=== PATIENT | female | born 1935 | race Caucasian/White ===

== ENCOUNTER 2016-08-20 11:34 | Emergency (ER) | payer MEDICARE, OTHER ==
--- NOTE | 2016-08-20 11:45 | ER Document Report ---
ED Medical Screen (RME) - General Stated Complaint: RIGHT LEG PAIN, BRUISING Notes: 80 yo female c/o bruising and pain to right leg. pt fell onto toilet. on coumadin. + bruising from hip to calf. able to walk without difficulty. feels pain from bruising. no chest pain or shortness of breath. hx/o A-fib. TRAVEL OUTSIDE OF THE [place] IN LAST 30 DAYS: No - Related Data Allergies/Adverse Reactions: fexofenadine HCl [From Saray] Allergy (Verified 02/01/13 14:20) rash meperidine HCl [From Demerol] Allergy (Verified 02/01/13 14:20) heart problems nickel [Nickel] Allergy (Verified 02/01/13 14:20) RASH Past Medical History - Past Medical History Cardiac Medical History: Reports: Hx Atrial Fibrillation, Hx Hypertension - on meds Denies: Hx Coronary Artery Disease, Hx Heart Attack Pulmonary Medical History: Reports: Hx Asthma - inhalers, Hx COPD - on O2 2l nc , Hx Pneumonia - hx of Denies: Hx Bronchitis, Hx Tuberculosis Neurological Medical History: Denies: Hx Cerebrovascular Accident, Hx Seizures Endocrine Medical History: Reports: Hx Hyperthyroidism, Hx Hypothyroidism GI Medical History: Denies: Hx Hepatitis, Hx Hiatal Hernia, Hx Ulcer Musculoskeltal Medical History: Reports Hx Arthritis Infectious Medical History: Denies: Hx Hepatitis Past Surgical History: Reports: Hx Appendectomy, Hx Orthopedic Surgery, Hx Tonsillectomy. Denies: Hx Mastectomy, Hx Open Heart Surgery, Hx Pacemaker - Immunizations Hx Diphtheria, Pertussis, Tetanus Vaccination: Yes
--- NOTE | 2016-08-20 12:09 | ER Document Report ---
ED General - General Chief Complaint: Fall Stated Complaint: RIGHT LEG PAIN, BRUISING Time seen by provider: 12:05 Mode of Arrival: Ambulatory Information source: Patient Notes: 80-year-old female who slipped while sitting down on toilet 5 days ago landing hard on her right leg. She had no loss of consciousness or fall. The patient is on Coumadin for atrial fibrillation routinely takes 5 mg a day and 2 weeks ago began taking and next to 1 mg on Thursday because of the therapeutic levels. She is followed by [facility]. 3 days ago the patient began noticing bruising diffusely to her right lower extremity. She does ambulate without difficulty but she reports mild discomfort in the distal right lower leg she is bearing weight without increase in discomfort. She denies numbness weakness to any extremity says she did not fall or strike her head with this incident. She denies hematemesis, hematochezia, melena, hematuria, chest pain, abdominal pain, back pain, or shortness of breath. Physical Exam: General: Alert, appears well. HEENT: Normocephalic. Atraumatic. PERRLA. Extraocular movements intact. Oropharynx clear. No otorhinorrhea Neck: Supple. Non-tender. Good range of motion without discomfort no bony deformity Respiratory: No respiratory distress. Clear and equal breath sounds bilaterally. Cardiovascular: Slightly irregular no murmur PMI not displaced Abdominal: Normal Inspection. Soft, non-tender. No distension. Normal Bowel Sounds. No guarding rebound rigidity Back: Non-tender. No deformity or step off. Extremities: Moves all four extremities. Upper extremities: Normal inspection. Non-tender. Normal color. Normal ROM. Normal temperature. Left foot there is minimal abnormality of the dorsum or family reports she had a skin graft. She has 1+ dorsalis pedis and posterior tibial pulses to both feet. There is extensive ecchymosis involving the posterior right thigh and circumferentially to the right lower leg and the need to the foot. She has 1+ edema involving the calf but no true Homans sign. She is able to demonstrate full active range of motion at the hip knee and ankle without increase in discomfort. Neurological: Speech clear mentation normal moves all 4 extremities equally Psychological: Normal affect. Normal Mood. Skin: Warm. Dry. Normal color. TRAVEL OUTSIDE OF THE [place] IN LAST 30 DAYS: No - Related Data Allergies/Adverse Reactions: fexofenadine HCl [From Saray] Allergy (Verified 08/20/16 11:41) rash meperidine HCl [From Demerol] Allergy (Verified 08/20/16 11:41) heart problems nickel [Nickel] Allergy (Verified 08/20/16 11:41) RASH Past Medical History - Social History Smoking Status: Former Smoker Chew tobacco use (# tins/day): No Frequency of alcohol use: None Drug Abuse: None Family History: Other - Brother with atrial fibrillation Patient has suicidal ideation: No Patient has homicidal ideation: No - Past Medical History Cardiac Medical History: Reports: Hx Atrial Fibrillation, Hx Hypertension - on meds Denies: Hx Coronary Artery Disease, Hx Heart Attack Pulmonary Medical History: Reports: Hx Asthma - inhalers, Hx COPD - on O2 2l nc , Hx Pneumonia - hx of Denies: Hx Bronchitis, Hx Tuberculosis Neurological Medical History: Denies: Hx Cerebrovascular Accident, Hx Seizures Endocrine Medical History: Reports: Hx Hyperthyroidism, Hx Hypothyroidism Renal/ Medical History: Denies: Hx Peritoneal Dialysis GI Medical History: Denies: Hx Hepatitis, Hx Hiatal Hernia, Hx Ulcer Musculoskeltal Medical History: Reports Hx Arthritis Infectious Medical History: Denies: Hx Hepatitis Past Surgical History: Reports: Hx Appendectomy, Hx Orthopedic Surgery, Hx Tonsillectomy. Denies: Hx Mastectomy, Hx Open Heart Surgery, Hx Pacemaker - Immunizations Hx Diphtheria, Pertussis, Tetanus Vaccination: Yes Hx Pneumococcal Vaccination: 07/03/08 Review of Systems - Review of Systems Constitutional: denies: Chills, Fever EENT: denies: Ear pain, Throat pain Cardiovascular: denies: Chest pain, Syncope Respiratory: denies: Cough, Short of breath Gastrointestinal: denies: Abdominal pain, Diarrhea, Nausea, Vomiting Genitourinary: denies: Burning, Dysuria Musculoskeletal: See HPI Skin: See HPI Neurological/Psychological: denies: Weakness, Numbness Physical Exam - Vital signs Vitals: Temp Pulse Resp BP 97.6 F 66 24 H 132/77 H 08/20/16 11:49 08/20/16 11:49 08/20/16 11:49 08/20/16 11:49 Course - Re-evaluation Re-evalutation: 08/20/16 14:20 Venous Doppler study shows no clot and she is appropriately anticoagulated. Hemoglobin is normal also doesn't appear that she has lost a significant amount of blood in spite of the market amount of bruising that she has. She is comfortable with discharge and have asked her follow with her primary care physician Dr. Jeff Ahumada [facility] Which She Has Agreed to Do. I Instructed Her to Continue Her Coumadin at Current Dosing until She Is Rechecked in the next few days. - Vital Signs Vital signs: Temp Pulse Resp BP Pulse Ox 97.6 F 66 24 H 132/77 H 95 08/20/16 11:49 08/20/16 11:49 08/20/16 11:49 08/20/16 11:49 08/20/16 11:52 - Laboratory Result Diagrams: 08/20/16 12:35 08/20/16 12:35 Laboratory results interpreted by me: 08/20/16 08/20/16 08/20/16 12:35 12:35 12:35 WBC 10.8 H MCHC 31.9 L RDW 15.7 H Plt Count 545 H Seg Neutrophils % 81.2 H Lymphocytes % 7.7 L Absolute Neutrophils 8.8 H PT 27.5 H Potassium 5.3 H Carbon Dioxide 34 H BUN 28 H Est GFR (Non-Af Amer) 54 L Total Bilirubin 1.4 H AST 49 H INR 2.44 - Diagnostic Test Radiology reviewed: Reports reviewed Discharge - Discharge Clinical Impression: Coagulopathy Contusion of right leg Qualifiers: Encounter type: initial encounter Qualified Code(s): S80.11XA - Contusion of right lower leg, initial encounter Atrial fibrillation Qualifiers: Atrial fibrillation type: unspecified Qualified Code(s): I48.91 - Unspecified atrial fibrillation Condition: Stable Disposition: HOME, SELF-CARE Additional Instructions: Coumadin (warfarin) Coumadin slows the clotting of the blood. It's sometimes called a "blood thinner." Coumadin makes it less likely that you'll have a blood clot, heart attack, or stroke. Coumadin works in the liver, which makes blood clotting enzymes. You must have a lab test (PT or pro-time) periodically to measure the effectiveness of Coumadin. Too much Coumadin makes you prone to bleeding; too little makes you prone to blood clots. Never change the dose of Coumadin without your doctor's advice. New medicines can change the effects of Coumadin. Never add a new drug without discussing it with the doctor who oversees your "blood thinning." If the drug can affect Coumadin, you'll need more frequent PT tests for a while. Vitamin K reverses the effects of Coumadin. Don't take extra vitamin K without discussing it with your doctor. You can take Tylenol (acetaminophen) for occasional pains. DO NOT use aspirin, ibuprofen (such as Advil), ketoprofen (Orudis), or naproxen (Aleve) unless your doctor approves it. You should NOT use Coumadin if you are or have active (new) or bleeding ulcers. Contact your doctor at once if you develop black tarry stool, rash, purple toes, worsening headache, loss of vision, numbness or weakness. Get immediate medical care if you are vomiting blood or passing bloody bowel movements, are lightheaded, or have a severe nosebleed.Atrial Fibrillation Atrial fibrillation is an abnormal heart rhythm, caused by irregular electrical circuits in the upper heart chamber. It can be caused by heart valve disease, hardening of the arteries, or metabolic problems such as thyroid disease, or may occur without a clear cause. Atrial fibrillation may occur only occasionally, or may be chronic. Atrial fibrillation often results in a very fast heart rate, with palpitations, lightheadedness, and shortness of breath. Treatment is to slow the abnormally fast rate, and to convert the rhythm back to normal, if possible. Many patients stay in atrial fibrillation for years without symptoms or complications. Your doctor will decide whether you can be converted back to a normal heart rhythm. Contact the doctor or emergency medical system at once if you develop chest pain, shortness of breath, or severe lightheadedness, or if you develop any disturbance of consciousness, problems with speech, or localized weakness. Referrals: JEFF TRUJILLO [Primary Care Provider] - Follow up in 3-5 days
[2016-08-20 12:49] LABS: ABSOLUTE BASOPHILS # (AUTO) 0.1 10^3/uL (0.0-0.2); ABSOLUTE EOSINOPHILS # (AUTO) 0.2 10^3/uL (0.0-0.6); ABSOLUTE LYMPHOCYTES (AUTO) 0.8 10^3/uL (0.5-4.7); ABSOLUTE MONOCYTES (AUTO) 0.9 10^3/uL (0.1-1.4); ABSOLUTE NEUT (AUTO) 8.8 10^3/uL (1.7-8.2); BASOPHILS % (AUTO) 1.1 % (0-2); EOSINOPHILS % (AUTO) 1.6 % (0-6); HEMOGLOBIN 12.4 g/dL (12.0-15.5); HGB HCT DIFFERENCE -1.8; LYMPHOCYTES % (AUTO) 7.7 % (13-45); MEAN CORPUSCULAR HEMOGLOBIN 30.8 pg (27.0-33.4); MEAN CORPUSCULAR HGB CONC 31.9 g/dL (32.0-36.0); MEAN CORPUSCULAR VOLUME 97 fl (80-97); MONOCYTES % (AUTO) 8.4 % (3-13); RED BLOOD COUNT 4.04 10^6/uL (3.72-5.28); RED CELL DISTRIBUTION WIDTH 15.7 % (11.5-14.0); SEGMENTED NEUTROPHILS % (AUTO) 81.2 % (42-78); WHITE BLOOD COUNT 10.8 10^3/uL (4.0-10.5)
[2016-08-20 12:57] LABS: PROTHROMBIN TIME 27.5 SEC (11.4-15.4)
[2016-08-20 13:08] LABS: ALANINE AMINOTRANSFERASE 30 U/L (9-52); ALBUMIN 3.8 g/dL (3.5-5.0); ALKALINE PHOSPHATASE 85 U/L (38-126); ANION GAP 6 (5-19); ASPARTATE AMINO TRANSFERASE 49 U/L (14-36); BILIRUBIN,TOTAL 1.4 mg/dL (0.2-1.3); BLOOD UREA NITROGEN 28 mg/dL (7-20); CALCIUM 9.4 mg/dL (8.4-10.2); CARBON DIOXIDE 34 mmol/L (22-30); CHLORIDE 101 mmol/L (98-107); CREATININE RESULT 0.98 mg/dL (0.52-1.25); GLUCOSE 81 mg/dL (75-110); POTASSIUM 5.3 mmol/L (3.6-5.0); SODIUM 141.2 mmol/L (137-145); TOTAL PROTEIN 6.9 g/dL (6.3-8.2)
[2016-08-20 14:39] VITALS: BP 149/82
[2016-08-20 14:40] LABS: APPEARANCE,URINE CLEAR; BILIRUBIN,URINE NEGATIVE (NEGATIVE); GLUCOSE, URINE NEGATIVE (NEGATIVE); KETONES,URINE NEGATIVE (NEGATIVE); LEUKOCYTE ESTERASE,URINE MODERATE (NEGATIVE); NITRITE,URINE NEGATIVE (NEGATIVE); PROTEIN,URINE NEGATIVE (NEGATIVE); URINE SPECIFIC GRAVITY 1.013
== END 2016-08-20 14:39 | disposition home or self-care (01) ==
LOC: ER 11:34
DX: S80.11XA Contusion of right lower leg, initial encounter (principal); W18.11XA Fall from or off toilet without subsequent striking against object, initial encounter; D68.9 Coagulation defect, unspecified; R58 Hemorrhage, not elsewhere classified; I48.91 Unspecified atrial fibrillation; Z79.01 Long term (current) use of anticoagulants; I10 Essential (primary) hypertension; J44.9 Chronic obstructive pulmonary disease, unspecified; J45.909 Unspecified asthma, uncomplicated; Z99.81 Dependence on supplemental oxygen; Z88.8 Allergy status to other drugs, medicaments and biological substances; Z88.5 Allergy status to narcotic agent; Z87.891 Personal history of nicotine dependence
CPT/HCPCS: 36415; 80053; 81001; 85025; 85610; 93971; 99283

== ENCOUNTER → 2016-11-21 | Outpatient (CLI) | payer MEDICARE, OTHER | LOC: RAD 11:20 | PROVIDERS: ATTEND Internal Medicine | DX: H53.2 Diplopia (principal) | CPT/HCPCS: 82565; 70553; A9577 ==

== ENCOUNTER → 2016-12-09 | Outpatient (CLI) | payer MEDICARE, OTHER | LOC: RAD 09:50 | PROVIDERS: ATTEND Internal Medicine | DX: H53.2 Diplopia (principal) | CPT/HCPCS: 70544 ==

== ENCOUNTER 2017-07-08 13:19 | Inpatient (IN) | payer MEDICARE, OTHER ==
[2017-07-08] MEDS ORDERED: IPRATROPIUM/ALBUTEROL 0.5-2.5 MG/3 ML AMPUL NEB ONE ×3 (13:50→16:21)
--- NOTE | 2017-07-08 13:53 | ER Document Report ---
ED Medical Screen (RME) - General Chief Complaint: Shortness Of Breath Stated Complaint: WEAK,CONGESTION Time Seen by Provider: 07/08/17 13:47 Notes: O2 dependent COPD on 4 L nasal cannula at home. Yesterday breathing got worse, she was found to have her concentrator to almost off and the were unable to locate her pulse oximeter. Today her breathing was worse and the pulse ox was reading in the 80s despite being on her 4 L O2. She does not use a nebulizer at home, has Spiriva Brio and rescue inhaler which she uses today. She does have a congested cough with rhonchi wheezes at this time. She is a little tachypneic. I have greeted and performed a rapid initial assessment of this patient. A comprehensive ED assessment and evaluation of the patient, analysis of test results and completion of the medical decision making process will be conducted by additional ED providers. TRAVEL OUTSIDE OF THE [place] IN LAST 30 DAYS: No - Related Data Allergies/Adverse Reactions: fexofenadine HCl [From Saray] Allergy (Verified 08/20/16 11:41) rash meperidine HCl [From Demerol] Allergy (Verified 08/20/16 11:41) heart problems nickel [Nickel] Allergy (Verified 08/20/16 11:41) RASH Past Medical History - Social History Chew tobacco use (# tins/day): No Frequency of alcohol use: None Drug Abuse: None - Past Medical History Cardiac Medical History: Reports: Hx Atrial Fibrillation, Hx Hypertension - on meds Denies: Hx Coronary Artery Disease, Hx Heart Attack Pulmonary Medical History: Reports: Hx Asthma - inhalers, Hx COPD - on O2 2l nc , Hx Pneumonia - hx of Denies: Hx Bronchitis, Hx Tuberculosis Neurological Medical History: Denies: Hx Cerebrovascular Accident, Hx Seizures Endocrine Medical History: Reports: Hx Hyperthyroidism, Hx Hypothyroidism Renal/ Medical History: Denies: Hx Peritoneal Dialysis GI Medical History: Denies: Hx Hepatitis, Hx Hiatal Hernia, Hx Ulcer Musculoskeltal Medical History: Reports Hx Arthritis Infectious Medical History: Denies: Hx Hepatitis Past Surgical History: Reports: Hx Appendectomy, Hx Orthopedic Surgery, Hx Tonsillectomy. Denies: Hx Mastectomy, Hx Open Heart Surgery, Hx Pacemaker - Immunizations Hx Diphtheria, Pertussis, Tetanus Vaccination: Yes Physical Exam - Vital signs Vitals: Temp Pulse Resp BP Pulse Ox 98.4 F 64 26 H 165/86 H 79 L 07/08/17 13:35 07/08/17 13:35 07/08/17 13:35 07/08/17 13:35 07/08/17 13:35 Course - Vital Signs Vital signs: Temp Pulse Resp BP Pulse Ox 98.4 F 64 26 H 165/86 H 79 L 07/08/17 13:35 07/08/17 13:35 07/08/17 13:35 07/08/17 13:35 07/08/17 13:35
[2017-07-08 14:36] LABS: HEMATOCRIT 42.8 % (36.0-47.0); HEMOGLOBIN 14.9 g/dL (12.0-15.5); HGB HCT DIFFERENCE 1.9; MEAN CORPUSCULAR HEMOGLOBIN 32.4 pg (27.0-33.4); MEAN CORPUSCULAR HGB CONC 34.8 g/dL (32.0-36.0); MEAN CORPUSCULAR VOLUME 93 fl (80-97); RED CELL DISTRIBUTION WIDTH 15.3 % (11.5-14.0); WHITE BLOOD COUNT 21.9 10^3/uL (4.0-10.5)
[2017-07-08] MEDS ORDERED: PREDNISONE 20 MG TABLET PO ONE (14:39)
--- NOTE | 2017-07-08 14:42 | ER Document Report ---
ED Respiratory Problem - General Chief Complaint: Shortness Of Breath Stated Complaint: WEAK,CONGESTION Time Seen by Provider: 07/08/17 13:47 Notes: The patient is an 81-year-old female, past medical history COPD (on home 4 L oxygen), AAntonia lau, presents with increased coughing and shortness of breath for the past 2 days. She was on her home 4 L oxygen and her pulse ox was 79%. She did not have any more albuterol at home that she could use. Pt lives by herself. She denies fevers, chest pain, leg swelling, hemoptysis, sputum, back pain, abdominal pain, nausea, vomiting or headache. TRAVEL OUTSIDE OF THE [place] IN LAST 30 DAYS: No - Related Data Allergies/Adverse Reactions: fexofenadine HCl [From Saray] Allergy (Verified 08/20/16 11:41) rash meperidine HCl [From Demerol] Allergy (Verified 08/20/16 11:41) heart problems nickel [Nickel] Allergy (Verified 08/20/16 11:41) RASH Past Medical History - General Information source: Patient - Social History Smoking Status: Former Smoker Chew tobacco use (# tins/day): No Frequency of alcohol use: None Drug Abuse: None Family History: Other - Brother with atrial fibrillation Patient has suicidal ideation: No Patient has homicidal ideation: No - Past Medical History Cardiac Medical History: Reports: Hx Atrial Fibrillation, Hx Hypertension - on meds Denies: Hx Coronary Artery Disease, Hx Heart Attack Pulmonary Medical History: Reports: Hx Asthma - inhalers, Hx COPD - on O2 2l nc , Hx Pneumonia - hx of Denies: Hx Bronchitis, Hx Tuberculosis Neurological Medical History: Denies: Hx Cerebrovascular Accident, Hx Seizures Endocrine Medical History: Reports: Hx Hyperthyroidism, Hx Hypothyroidism Renal/ Medical History: Denies: Hx Peritoneal Dialysis GI Medical History: Denies: Hx Hepatitis, Hx Hiatal Hernia, Hx Ulcer Musculoskeltal Medical History: Reports Hx Arthritis Infectious Medical History: Denies: Hx Hepatitis Past Surgical History: Reports: Hx Appendectomy, Hx Orthopedic Surgery, Hx Tonsillectomy. Denies: Hx Mastectomy, Hx Open Heart Surgery, Hx Pacemaker - Immunizations Hx Diphtheria, Pertussis, Tetanus Vaccination: Yes Hx Pneumococcal Vaccination: 07/03/08 Review of Systems - Review of Systems Notes: REVIEW OF SYSTEMS: CONSTITUTIONAL: -fevers, -chills EENT: -eye pain, -difficulty swallowing, -nasal congestion CARDIOVASCULAR:-chest pain, -syncope. RESPIRATORY: +cough, +SOB GASTROINTESTINAL: -abdominal pain, -nausea, -vomiting, -diarrhea GENITOURINARY: -dysuria, -hematuria MUSCULOSKELETAL: -back pain, -neck pain SKIN: -rash or skin lesions. HEMATOLOGIC: -easy bruising or bleeding. LYMPHATIC: -swollen, enlarged glands. NEUROLOGICAL: -altered mental status or loss of consciousness, -headache, - neurologic symptoms PSYCHIATRIC: -anxiety, -depression. ALL OTHER SYSTEMS REVIEWED AND NEGATIVE. Physical Exam - Vital signs Vitals: Temp Pulse Resp BP Pulse Ox 98.4 F 64 26 H 165/86 H 79 L 07/08/17 13:35 07/08/17 13:35 07/08/17 13:35 07/08/17 13:35 07/08/17 13:35 - Notes Notes: PHYSICAL EXAMINATION: GENERAL: Mild respiratory distress. HEAD: Atraumatic, normocephalic. EYES: Pupils equal round and reactive to light, extraocular movements intact, sclera anicteric, conjunctiva are normal. ENT: nares patent, oropharynx clear without exudates. Moist mucous membranes. NECK: Normal range of motion, supple without lymphadenopathy LUNGS: Diffuse wheezing. Speaking in 4 word sentences. Crackles in RUL. HEART: Regular rate. Irregular rhythm. ABDOMEN: Soft, nontender, normoactive bowel sounds. No guarding, no rebound. No masses appreciated. EXTREMITIES: Normal range of motion, no pitting or edema. No cyanosis. NEUROLOGICAL: Cranial nerves grossly intact. Normal speech, normal gait. Normal sensory and motor exams. PSYCH: Normal mood, normal affect. SKIN: Warm, Dry, normal turgor, no rashes or lesions noted. Course - Re-evaluation Re-evalutation: Patient presents tachypneic with diffuse wheezing and hypoxia down to 79% on her usual 4 L nasal cannula. After duonebs and steroids, her wheezing improved , but she still felt short of breath. Patient was ambulated on her home 4 L nasal cannula and she went back down into the 70s. Chest x-ray does not show any acute findings, but patient does have a new cough, crackles in RUL with a leukocytosis of 21, higher than prior values. Will begin Azithromycin and Rocephin for a presumed early-pneumonia with lagging on chest x-ray. Considered PE, but patient's symptoms are more consistent with bronchitis/pneumonia/COPD exacerbation causing the SOB and hypoxia. Pt's PMD is Jeff Mendez at [facility] and she has seen Dr. Chaudhry (Pulmonology). Pt requires Inpatient admission for further evaluation and treatment of her COPD exacerbation and presumed clinical early-pneumonia. 07/08/17 17:[address] De Jesus and will admit patient to IMCU. - Vital Signs Vital signs: Temp Pulse Resp BP Pulse Ox 98.4 F 64 28 H 165/86 H 88 L 07/08/17 13:35 07/08/17 13:35 07/08/17 16:00 07/08/17 13:35 07/08/17 16:00 - Laboratory Result Diagrams: 07/08/17 14:12 07/08/17 16:25 Laboratory results interpreted by me: 07/08/17 07/08/17 14:12 16:25 WBC 21.9 H RDW 15.3 H Plt Count 492 H Seg Neuts % (Manual) 93 H Lymphocytes % (Manual) 2 L Abs Neuts (Manual) 20.4 H Sodium 133.7 L Chloride 92 L Glucose 117 H Calcium 10.3 H Direct Bilirubin 0.6 H - Diagnostic Test Radiology reviewed: Image reviewed, Reports reviewed Radiology results interpreted by me: CXR: Chronic lung changes. Discharge - Discharge Clinical Impression: Hypoxia, COPD exacerbation, Clinical Pneumonia Leukocytosis Qualifiers: Leukocytosis type: unspecified Qualified Code(s): D72.829 - Elevated white blood cell count, unspecified Condition: Stable Disposition: ADMITTED INPATIENT Admitting Provider: [facility] Unit Admitted: [facility] Referrals: JEFF MENDEZ FNP [Primary Care Provider] - Follow up as needed
[2017-07-08 14:56] LABS: BASOPHILS % (MANUAL) 0 % (0-2); EOSINOPHILS % (MANUAL) 0 % (0-6); LYMPHOCYTES % (MANUAL) 2 % (13-45); TOTAL CELLS COUNTED 100
[2017-07-08 14:57] LABS: ANISOCYTOSIS SLIGHT
--- NOTE | 2017-07-08 15:11 | RADIOLOGY REPORT (SQ) ---
EXAM DESCRIPTION: CHEST SINGLE VIEW COMPLETED DATE/TIME: 07/08/2017 2:59 pm REASON FOR STUDY: COPD exacerbation COMPARISON: 04/28/2015 EXAM PARAMETERS: NUMBER OF VIEWS: One view. TECHNIQUE: Single frontal radiographic view of the chest acquired. RADIATION DOSE: NA LIMITATIONS: None. FINDINGS: LUNGS AND PLEURA: Chronic interstitial changes are present. There is no infiltrate or eff usion. MEDIASTINUM AND HILAR STRUCTURES: No masses. Contour normal. HEART AND VASCULAR STRUCTURES: Heart normal in size. Normal vasculature. BONES: No acute findings. HARDWARE: None in the chest. OTHER: No other significant finding. IMPRESSION: Chronic changes no acute cardiopulmonary disease. TECHNICAL DOCUMENTATION: JOB ID: [id number]- All Rights Reserved
[2017-07-08 16:53] LABS: ALANINE AMINOTRANSFERASE 46 U/L (9-52); ALBUMIN 4.5 g/dL (3.5-5.0); ALKALINE PHOSPHATASE 110 U/L (38-126); ANION GAP 14 (5-19); ASPARTATE AMINO TRANSFERASE 36 U/L (14-36); BILIRUBIN,DIRECT 0.6 mg/dL (0.0-0.4); BILIRUBIN,TOTAL 1.1 mg/dL (0.2-1.3); BLOOD UREA NITROGEN 20 mg/dL (7-20); CALCIUM 10.3 mg/dL (8.4-10.2); CARBON DIOXIDE 28 mmol/L (22-30); CHLORIDE 92 mmol/L (98-107); CREATINE KINASE 73 U/L (30-135); CREATININE RESULT 0.81 mg/dL (0.52-1.25); GLUCOSE 117 mg/dL (75-110); POTASSIUM 4.5 mmol/L (3.6-5.0); SODIUM 133.7 mmol/L (137-145); TOTAL PROTEIN 7.1 g/dL (6.3-8.2)
[2017-07-08] MEDS ORDERED: ONDANSETRON 4 MG TAB.RAPDIS PO PRN (18:14)
[2017-07-08] MEDS ORDERED: ACETAMINOPHEN 325 MG TABLET PO PRN (18:14)
[2017-07-08] MEDS ORDERED: LEVALBUTEROL HCL NEB 1.25 MG/3 ML AMPUL NEB PRN (18:14)
[2017-07-08] MEDS ORDERED: ONDANSETRON HCL INJ/PF 4 MG/2 ML SDV IV PRN (18:14)
--- NOTE | 2017-07-08 18:34 | PDOC H&P ---
History of Present Illness Admission Date/PCP: 07/08/17 17:39 UMAIR BULLARD Patient complains of: Shortness of breath and cough History of Present Illness: MANOJ WYATT is a 81 year old female who has a history of COPD and is normally on 4 L per nasal cannula of oxygen who presents with an acute COPD exacerbation. Patient reports that yesterday afternoon she began to have worsening shortness of breath. She also has developed a dry nonproductive cough since yesterday. She denies having any fevers or chills. She denies any orthopnea or PND. She has not had any contact with anyone has been sick. She has not done any recent traveling. The patient denies any chest pain. She denies any lower extremity edema. She does have atrial fibrillation and denies any palpitations. Past Medical History Cardiac Medical History: Reports: Atrial Fibrillation, Hypertension - on meds Denies: Coronary Artery Disease, Myocardial Infarction Pulmonary Medical History: Reports: Asthma - inhalers, Chronic Obstructive Pulmonary Disease (COPD) - on O2 2l nc, Pneumonia - hx of Denies: Bronchitis, Tuberculosis EENT Medical History: Reports: Cataracts Neurological Medical History: Denies: Seizures Endocrine Medical History: Reports: Hyperthyroidism - History of radioactive iodine treatment, Hypothyroidism - Occurred after radioactive iodine. Renal/ Medical History: Reports: None Malignancy Medical History: Reports: Skin Cancer GI Medical History: Reports: None Musculoskeltal Medical History: Reports: Arthritis Psychiatric Medical History: Reports: General Anxiety Disorder Traumatic Medical History: Reports: None Hematology: Reports: None Infectious Medical History: Reports: None Past Surgical History Past Surgical History: Reports: Appendectomy, Orthopedic Surgery, Tonsillectomy Denies: Amputation, Mastectomy, Pacemaker Social History Information Source: Patient Lives with: Alone Smoking Status: Former Smoker Frequency of Alcohol Use: None Hx Recreational Drug Use: No Drugs: None Hx Prescription Drug Abuse: No - Advance Directive Resuscitation Status: Full Code Surrogate healthcare decision maker:: Her daughter Family History Family History: Other - Brother with atrial fibrillation Family History: Mother at age 79. She had no chronic health issues. Father at age 79 and had problems with blindness Parental Family History Reviewed: Yes Children Family History Reviewed: No Sibling(s) Family History Reviewed.: Yes Medication/Allergy Home Medications: Ascorbic Acid [Vitamin C 500 mg Tablet] 1,000 mg PO DAILY 07/08/17 Atenolol [Tenormin 50 mg Tablet] 50 mg PO DAILY 07/08/17 Atorvastatin Calcium [Lipitor 40 mg Tablet] 40 mg PO QHS 07/08/17 Diltiazem HCl [Cardizem 60 mg Tablet] 60 mg PO DAILY 07/08/17 Fluoxetine HCl [Prozac 20 mg Capsule] 20 mg PO DAILY 07/08/17 Fluticasone Propionate [Flonase Nasal [place] 50 Mcg/Winner 16 gm] 2 sprays NAREB DAILY 07/08/17 Fluticasone/Vilanterol [Breo Ellipta 200-25 Mcg INH] 1 puff IH DAILY 07/08/17 Levothyroxine Sodium [Synthroid] 125 mcg PO DAILY 07/08/17 Loratadine [Claritin 10 mg Tablet] 10 mg PO DAILY 07/08/17 Magnesium Oxide [Magnesium] 400 mg PO DAILY 07/08/17 Montelukast Sodium [Singulair 10 mg Tablet] 10 mg PO QHS 07/08/17 Multivitamin [One-A-Day Essential] 1 tab PO DAILY 07/08/17 Tiotropium [place] [Spiriva Respimat] 1 puff IH Q12 07/08/17 Warfarin Sodium [Coumadin 5 mg Tablet] 5 mg PO DAILY 07/08/17 Allergies/Adverse Reactions: fexofenadine HCl [From Saray] Allergy (Verified 08/20/16 11:41) rash meperidine HCl [From Demerol] Allergy (Verified 08/20/16 11:41) heart problems nickel [Nickel] Allergy (Verified 08/20/16 11:41) RASH Review of Systems Constitutional: ABSENT: chills, fever(s), headache(s), weight gain, weight loss Eyes: ABSENT: visual disturbances Ears: ABSENT: hearing changes Cardiovascular: PRESENT: dyspnea on exertion. ABSENT: chest pain, edema, orthropnea, palpitations Respiratory: PRESENT: cough, dyspnea. ABSENT: hemoptysis, sputum Gastrointestinal: ABSENT: abdominal pain, constipation, diarrhea, hematemesis, hematochezia, nausea, vomiting Genitourinary: ABSENT: dysuria, hematuria Musculoskeletal: ABSENT: joint swelling Integumentary: ABSENT: rash, wounds Neurological: ABSENT: abnormal gait, abnormal speech, confusion, dizziness, focal weakness, syncope Psychiatric: PRESENT: anxiety Endocrine: ABSENT: cold intolerance, heat intolerance, polydipsia, polyuria Hematologic/Lymphatic: ABSENT: easy bleeding, easy bruising Physical Exam Vital Signs: Temp Pulse Resp BP Pulse Ox 98.4 F 64 28 H 165/86 H 88 L 07/08/17 13:35 07/08/17 13:35 07/08/17 16:00 07/08/17 13:35 07/08/17 16:00 General appearance: PRESENT: mild distress Head exam: PRESENT: atraumatic, normocephalic Eye exam: PRESENT: conjunctiva pink, EOMI, PERRLA. ABSENT: scleral icterus Ear exam: PRESENT: normal external ear exam Mouth exam: PRESENT: moist, tongue midline Neck exam: ABSENT: carotid bruit, JVD, lymphadenopathy, thyromegaly Respiratory exam: PRESENT: wheezes - Bilateral expiratory wheezes. ABSENT: rales, rhonchi Cardiovascular exam: PRESENT: irregular rhythm. ABSENT: diastolic murmur, rubs , systolic murmur Vascular exam: PRESENT: normal capillary refill GI/Abdominal exam: PRESENT: normal bowel sounds, soft. ABSENT: distended, guarding, mass, organolmegaly, rebound, tenderness Rectal exam: PRESENT: deferred Extremities exam: ABSENT: calf tenderness, clubbing, pedal edema Neurological exam: PRESENT: alert, awake, oriented to person, oriented to place , oriented to time, oriented to situation, CN II-XII grossly intact. ABSENT: motor sensory deficit Psychiatric exam: PRESENT: appropriate affect Skin exam: PRESENT: dry, intact, warm. ABSENT: cyanosis, rash Results Impressions: Chest X-Ray 07/08/17 13:50 IMPRESSION: Chronic changes no acute cardiopulmonary disease. Assessment & Plan - Diagnosis (1) COPD exacerbation Is this a current diagnosis for this admission?: Yes Plan: Patient has history of COPD chronically on 4 L of oxygen per nasal cannula. The patient most likely has a mild bronchitis as the cause for the exacerbation. Will treat with IV steroids, nebulizers, and Rocephin and Zithromax. We will also continue with the oxygen to keep her saturation around 90%. (2) Bronchitis Is this a current diagnosis for this admission?: Yes Plan: Patient has had a nonproductive cough. No obvious pneumonia on chest x-ray. Will treat with Rocephin and Zithromax. (3) Atrial fibrillation Is this a current diagnosis for this admission?: Yes Plan: Patient is rate controlled on diltiazem and atenolol. Will continue with those. She is also on Coumadin. Will follow daily prothrombin times. (4) Hypertension Is this a current diagnosis for this admission?: Yes Plan: Continue with diltiazem and atenolol. (5) Hypothyroidism Is this a current diagnosis for this admission?: Yes Plan: Continue with Synthroid. (6) Anxiety Is this a current diagnosis for this admission?: Yes Plan: Continue Prozac. - Time Time Spent: 50 to 70 Minutes - Inpatient Certification Medical Necessity: Need Close Monitoring Due to Risk of Patient Decompensation, Need for IV Antibiotics
[2017-07-08 18:47] LABS: PROTHROMBIN TIME 31.2 SEC (11.4-15.4)
[2017-07-08] MEDS ORDERED: ENOXAPARIN SODIUM INJ 40 MG/0.4 ML DISP.SYRIN SUBCUT ONE (19:30)
[2017-07-08] MEDS: CEFTRIAXONE 1 GM/D5W RTU 1 GM/50 ML RTUPB IV SCH (20:20)
[2017-07-08] MEDS: IPRATROPIUM/ALBUTEROL 0.5-2.5 MG/3 ML AMPUL NEB SCH ×2 (20:20→23:53)
[2017-07-08] MEDS: FAMOTIDINE 20 MG TABLET PO SCH (20:41)
[2017-07-08] MEDS: ATORVASTATIN CALCIUM 40 MG TABLET PO SCH (20:41)
[2017-07-08] MEDS: MONTELUKAST SODIUM 10 MG TABLET PO SCH (20:41)
[2017-07-08] MEDS: WARFARIN SODIUM 5 MG TABLET PO SCH (21:18)
[2017-07-08] MEDS: AZITHROMYCIN 500 MG in DEXTROSE 5%-WATER 250 ML IV SCH (22:11)
[2017-07-08] MEDS: METHYLPREDNISOLONE INJ 40 MG/1 ML SDV IV SCH (22:18)
[2017-07-09] MEDS: IPRATROPIUM/ALBUTEROL 0.5-2.5 MG/3 ML AMPUL NEB SCH ×5 (03:55→19:42)
[2017-07-09 05:49] LABS: HEMATOCRIT 42.4 % (36.0-47.0); HEMOGLOBIN 14.1 g/dL (12.0-15.5); HGB HCT DIFFERENCE -0.1; MEAN CORPUSCULAR HEMOGLOBIN 31.2 pg (27.0-33.4); MEAN CORPUSCULAR HGB CONC 33.2 g/dL (32.0-36.0); MEAN CORPUSCULAR VOLUME 94 fl (80-97); RED BLOOD COUNT 4.51 10^6/uL (3.72-5.28); RED CELL DISTRIBUTION WIDTH 15.3 % (11.5-14.0); WHITE BLOOD COUNT 18.5 10^3/uL (4.0-10.5)
[2017-07-09 06:17] LABS: ANION GAP 12 (5-19); BLOOD UREA NITROGEN 25 mg/dL (7-20); CALCIUM 9.9 mg/dL (8.4-10.2); CARBON DIOXIDE 29 mmol/L (22-30); CHLORIDE 91 mmol/L (98-107); GLUCOSE 158 mg/dL (75-110); POTASSIUM 4.7 mmol/L (3.6-5.0); SODIUM 131.9 mmol/L (137-145)
[2017-07-09] MEDS: LEVOTHYROXINE SODIUM 0.025 MG TABLET PO SCH (07:45)
[2017-07-09] MEDS: METHYLPREDNISOLONE INJ 40 MG/1 ML SDV IV SCH ×3 (07:46→22:06)
[2017-07-09] MEDS: LEVOTHYROXINE SODIUM 0.1 MG TABLET PO SCH (07:46)
[2017-07-09] MEDS: ASCORBIC ACID 500 MG TABLET PO SCH (09:57)
[2017-07-09] MEDS: FLUOXETINE HCL 20 MG CAPSULE PO SCH (09:58)
[2017-07-09] MEDS: MULTIVITAMIN TABLET PO SCH (09:58)
[2017-07-09] MEDS: MAGNESIUM OXIDE 400 MG TABLET PO SCH (09:58)
[2017-07-09] MEDS: DILTIAZEM HCL 60 MG TABLET PO SCH (09:58)
[2017-07-09] MEDS: FAMOTIDINE 20 MG TABLET PO SCH ×2 (09:59→22:06)
[2017-07-09] MEDS: ENOXAPARIN SODIUM INJ 40 MG/0.4 ML DISP.SYRIN SUBCUT SCH (09:59)
[2017-07-09] MEDS ORDERED: (PENDING PHARMACY ID) (Warfarin Sodium 5 MG) PO SCH (10:00)
[2017-07-09] MEDS ORDERED: (PENDING PHARMACY ID) (Fluticasone/Vilanterol [Breo Ellipta 200-25 Mcg Inh] 1 PUFF) IH SCH (10:00)
[2017-07-09] MEDS ORDERED: (PENDING PHARMACY ID) (Levothyroxine Sodium [Synthroid] 125 MCG) PO SCH (10:00)
[2017-07-09] MEDS: ATENOLOL 50 MG TABLET PO SCH (10:42)
[2017-07-09] MEDS: LORATADINE 10 MG TABLET PO SCH (10:42)
--- NOTE | 2017-07-09 12:53 | PDOC PROGRESS REPORT ---
Subjective Progress Note for:: 07/09/17 Subjective:: Reports that her breathing is doing better Reason For Visit: COPD EXACERBATION Physical Exam Vital Signs: Temp Pulse Resp BP Pulse Ox 97.9 F 79 18 150/81 H 91 L 07/09/17 07:50 07/09/17 12:15 07/09/17 12:15 07/09/17 07:50 07/09/17 12:15 Intake & Output 07/08/17 07/09/17 07/10/17 06:59 06:59 06:59 Intake Total 355 Balance 355 General appearance: PRESENT: no acute distress Eye exam: PRESENT: conjunctiva pink. ABSENT: scleral icterus Ear exam: PRESENT: normal external ear exam Mouth exam: PRESENT: moist, tongue midline Neck exam: ABSENT: JVD Respiratory exam: PRESENT: clear to auscultation albert. ABSENT: rales, rhonchi, wheezes Cardiovascular exam: PRESENT: RRR. ABSENT: diastolic murmur, rubs, systolic murmur Pulses: PRESENT: normal dorsalis pedis pul GI/Abdominal exam: PRESENT: normal bowel sounds, soft. ABSENT: distended, guarding, mass, organolmegaly, rebound, tenderness Extremities exam: ABSENT: calf tenderness, clubbing, pedal edema Neurological exam: PRESENT: alert, awake, oriented to person, oriented to place , oriented to time, oriented to situation, CN II-XII grossly intact. ABSENT: motor sensory deficit Psychiatric exam: PRESENT: appropriate affect Skin exam: PRESENT: dry, intact, warm. ABSENT: cyanosis, rash Results Laboratory Results: 07/09/17 05:35 07/09/17 05:35 07/09/17 07/09/17 05:35 05:35 WBC 18.5 H RBC 4.51 Hgb 14.1 Hct 42.4 MCV 94 MCH 31.2 MCHC 33.2 RDW 15.3 H Plt Count 413 Sodium 131.9 L Potassium 4.7 Chloride 91 L Carbon Dioxide 29 Anion Gap 12 BUN 25 H Creatinine 1.00 Est GFR ( Amer) > 60 Est GFR (Non-Af Amer) 53 L Glucose 158 H Calcium 9.9 Impressions: Chest X-Ray 07/08/17 13:50 IMPRESSION: Chronic changes no acute cardiopulmonary disease. Assessment & Plan - Diagnosis (1) COPD exacerbation Is this a current diagnosis for this admission?: Yes Plan: Patient has history of COPD chronically on 4 L of oxygen per nasal cannula. The patient most likely has a mild bronchitis as the cause for the exacerbation. Will continue with IV steroids, nebulizers, and Rocephin and Zithromax. We will also continue with the oxygen to keep her saturation around 90%. (2) Bronchitis Is this a current diagnosis for this admission?: Yes Plan: Patient has had a nonproductive cough. No obvious pneumonia on chest x-ray. Will treat with Rocephin and Zithromax. (3) Atrial fibrillation Is this a current diagnosis for this admission?: Yes Plan: Patient is rate controlled on diltiazem and atenolol. Will continue with those. She is also on Coumadin. Will follow daily prothrombin times. (4) Hypertension Is this a current diagnosis for this admission?: Yes Plan: Continue with diltiazem and atenolol. (5) Hypothyroidism Is this a current diagnosis for this admission?: Yes Plan: Continue with Synthroid. (6) Anxiety Is this a current diagnosis for this admission?: Yes Plan: Continue Prozac. - Time Time Spent with patient: 15-24 minutes - Inpatient Certification Medical Necessity: Need Close Monitoring Due to Risk of Patient Decompensation, Need for IV Antibiotics
[2017-07-09] MEDS: CEFTRIAXONE 1 GM/D5W RTU 1 GM/50 ML RTUPB IV SCH (22:05)
[2017-07-09] MEDS: MONTELUKAST SODIUM 10 MG TABLET PO SCH (22:06)
[2017-07-09] MEDS: ATORVASTATIN CALCIUM 40 MG TABLET PO SCH (22:06)
[2017-07-09] MEDS: WARFARIN SODIUM 5 MG TABLET PO SCH (22:06)
[2017-07-09] MEDS: AZITHROMYCIN 500 MG in DEXTROSE 5%-WATER 250 ML IV SCH (22:08)
[2017-07-09] MEDS ORDERED: IPRATROPIUM/ALBUTEROL 0.5-2.5 MG/3 ML AMPUL NEB PRN (23:40)
[2017-07-09] MEDS ORDERED: CHLORPHENIRAMINE MALEATE 4 MG TABLET PO ONE (23:40)
[2017-07-10] MEDS: IPRATROPIUM/ALBUTEROL 0.5-2.5 MG/3 ML AMPUL NEB SCH ×3 (00:04→07:56)
[2017-07-10 00:29] LABS: ARTERIAL BLOOD BASE EXCESS 4.5 mmol/L; ARTERIAL BLOOD O2 SATURATION 95.5 % (94-98)
[2017-07-10] MEDS ORDERED: FLUTICASONE NASAL SPRAY 50 MCG/SPRY 120 SPRAY/16 GM NASL ONE (00:30)
[2017-07-10] MEDS ORDERED: FLUTICASONE NASAL SPRAY 50 MCG/SPRY 120 SPRAY/16 GM ONE (00:58)
[2017-07-10] MEDS ORDERED: CHLORPHENIRAMINE MALEATE 4 MG TABLET ONE (01:20)
[2017-07-10 04:47] LABS: HEMATOCRIT 39.7 % (36.0-47.0); HEMOGLOBIN 13.4 g/dL (12.0-15.5); HGB HCT DIFFERENCE 0.5; MEAN CORPUSCULAR HGB CONC 33.6 g/dL (32.0-36.0); MEAN CORPUSCULAR VOLUME 92 fl (80-97); RED BLOOD COUNT 4.31 10^6/uL (3.72-5.28); RED CELL DISTRIBUTION WIDTH 15.1 % (11.5-14.0); WHITE BLOOD COUNT 20.4 10^3/uL (4.0-10.5)
[2017-07-10 05:04] LABS: ANION GAP 9 (5-19); BLOOD UREA NITROGEN 25 mg/dL (7-20); CALCIUM 9.8 mg/dL (8.4-10.2); CARBON DIOXIDE 30 mmol/L (22-30); CHLORIDE 88 mmol/L (98-107); GLUCOSE 166 mg/dL (75-110); POTASSIUM 4.5 mmol/L (3.6-5.0); SODIUM 127.4 mmol/L (137-145)
[2017-07-10 05:15] LABS: BASOPHILS % (MANUAL) 0 % (0-2); EOSINOPHILS % (MANUAL) 0 % (0-6); LYMPHOCYTES % (MANUAL) 1 % (13-45); TOTAL CELLS COUNTED 100
[2017-07-10 05:16] LABS: ANISOCYTOSIS 1+; TOXIC GRANULATION SLIGHT; TOXIC VACUOLATION PRESENT
[2017-07-10] MEDS: LEVOTHYROXINE SODIUM 0.025 MG TABLET PO SCH (05:55)
[2017-07-10] MEDS: METHYLPREDNISOLONE INJ 40 MG/1 ML SDV IV SCH (05:55)
[2017-07-10] MEDS: LEVOTHYROXINE SODIUM 0.1 MG TABLET PO SCH (05:55)
[2017-07-10] MEDS: DILTIAZEM HCL 60 MG TABLET PO SCH (09:33)
[2017-07-10] MEDS: ATENOLOL 50 MG TABLET PO SCH (09:33)
[2017-07-10] MEDS: MULTIVITAMIN TABLET PO SCH (09:34)
[2017-07-10] MEDS: LORATADINE 10 MG TABLET PO SCH (09:34)
[2017-07-10] MEDS: FLUOXETINE HCL 20 MG CAPSULE PO SCH (09:34)
[2017-07-10] MEDS: MAGNESIUM OXIDE 400 MG TABLET PO SCH (09:34)
[2017-07-10] MEDS: ASCORBIC ACID 500 MG TABLET PO SCH (09:34)
[2017-07-10] MEDS: FAMOTIDINE 20 MG TABLET PO SCH (09:35)
[2017-07-10] MEDS: ENOXAPARIN SODIUM INJ 40 MG/0.4 ML DISP.SYRIN SUBCUT SCH (09:35)
[2017-07-10] MEDS ORDERED: FLUTICASONE NASAL SPRAY 50 MCG/SPRY 120 SPRAY/16 GM NASL SCH (10:00)
[2017-07-10 10:55] VITALS: BP 156/79
--- NOTE | 2017-07-10 15:03 | PDOC DISCHARGE SUMMARY ---
General - Admit/Disc Date/PCP Admission Date/Primary Care Provider: 07/08/17 17:39 UMAIR BULLARD Discharge Date: 07/10/17 - Discharge Diagnosis (1) COPD exacerbation Is this a current diagnosis for this admission?: Yes (2) Bronchitis Is this a current diagnosis for this admission?: Yes (3) Atrial fibrillation Is this a current diagnosis for this admission?: Yes (4) Hypertension Is this a current diagnosis for this admission?: Yes (5) Hypothyroidism Is this a current diagnosis for this admission?: Yes (6) Anxiety Is this a current diagnosis for this admission?: Yes - Additional Information Resuscitation Status: Full Code Discharge Diet: Cardiac Discharge Activity: Activity As Tolerated Home Medications: Ascorbic Acid [Vitamin C 500 mg Tablet] 1,000 mg PO DAILY 07/08/17 Atenolol [Tenormin 50 mg Tablet] 50 mg PO DAILY 07/08/17 Atorvastatin Calcium [Lipitor 40 mg Tablet] 40 mg PO QHS 07/08/17 Diltiazem HCl [Cardizem 60 mg Tablet] 60 mg PO DAILY 07/08/17 Fluoxetine HCl [Prozac 20 mg Capsule] 20 mg PO DAILY 07/08/17 Fluticasone Propionate [Flonase Nasal [place] 50 Mcg/[place]isk 16 gm] 2 sprays NAREB DAILY 07/08/17 Fluticasone/Vilanterol [Breo Ellipta 200-25 Mcg INH] 1 puff IH DAILY 07/08/17 Levothyroxine Sodium [Synthroid] 125 mcg PO DAILY 07/08/17 Loratadine [Claritin 10 mg Tablet] 10 mg PO DAILY 07/08/17 Magnesium Oxide [Magnesium] 400 mg PO DAILY 07/08/17 Montelukast Sodium [Singulair 10 mg Tablet] 10 mg PO QHS 07/08/17 Multivitamin [One-A-Day Essential] 1 tab PO DAILY 07/08/17 Tiotropium [place] [Spiriva Respimat] 1 puff IH Q12 07/08/17 Warfarin Sodium [Coumadin 5 mg Tablet] 5 mg PO DAILY 07/08/17 Cefuroxime Axetil [Ceftin 500 mg Tablet] 1 tab PO BID #20 tablet 07/10/17 Prednisone 10 mg PO DAILY #39 tablet 07/10/17 History of Present Illness History of Present Illness: MANOJ WYATT is a 81 year old female who has a history of COPD and is normally on 4 L per nasal cannula of oxygen who presents with an acute COPD exacerbation. Patient reports that yesterday afternoon she began to have worsening shortness of breath. She also has developed a dry nonproductive cough since yesterday. She denies having any fevers or chills. She denies any orthopnea or PND. She has not had any contact with anyone has been sick. She has not done any recent traveling. The patient denies any chest pain. She denies any lower extremity edema. She does have atrial fibrillation and denies any palpitations. Hospital Course Hospital Course: 81-year-old female with has a history of COPD normally on 4 L per nasal cannula who presented with an acute COPD exacerbation most likely secondary to bronchitis. She was started on IV steroids as well as Rocephin and Zithromax. The patient had quick improvement in her respiratory status and on the day of discharge was back to her baseline status. The patient's cultures were negative so far and she will be sent home on a course of Ceftin for antibiotics and a prednisone taper. The patient's other medical problems were stable during this hospitalization. Physical Exam Vital Signs: Temp Pulse Resp BP Pulse Ox 98.2 F 83 20 156/79 H 96 07/10/17 10:52 07/10/17 10:52 07/10/17 10:52 07/10/17 10:52 07/10/17 10:52 Intake & Output 07/09/17 07/10/17 07/11/17 06:59 06:59 06:59 Intake Total 355 960 Output Total 250 Balance 355 710 Weight 61.1 kg General appearance: PRESENT: no acute distress Eye exam: PRESENT: conjunctiva pink. ABSENT: scleral icterus Mouth exam: PRESENT: moist, tongue midline Neck exam: ABSENT: JVD Respiratory exam: PRESENT: clear to auscultation albert. ABSENT: rales, rhonchi, wheezes Cardiovascular exam: PRESENT: RRR. ABSENT: diastolic murmur, rubs, systolic murmur GI/Abdominal exam: PRESENT: normal bowel sounds, soft. ABSENT: distended, guarding, mass, organolmegaly, rebound, tenderness Extremities exam: ABSENT: calf tenderness, clubbing, pedal edema Neurological exam: PRESENT: alert, awake, oriented to person, oriented to place , oriented to time, oriented to situation, CN II-XII grossly intact. ABSENT: motor sensory deficit Psychiatric exam: PRESENT: appropriate affect Skin exam: PRESENT: dry, intact, warm. ABSENT: cyanosis, rash Results Laboratory Results: 07/10/17 04:16 07/10/17 04:16 07/10/17 07/10/17 07/10/17 00:13 04:16 04:16 WBC 20.4 H RBC 4.31 Hgb 13.4 Hct 39.7 MCV 92 MCH 31.0 MCHC 33.6 RDW 15.1 H Plt Count 413 Seg Neutrophils % Not Reportable Lymphocytes % Not Reportable Monocytes % Not Reportable Eosinophils % Not Reportable Basophils % Not Reportable Absolute Neutrophils Not Reportable Absolute Lymphocytes Not Reportable Absolute Monocytes Not Reportable Absolute Eosinophils Not Reportable Absolute Basophils Not Reportable Carbonic Acid 1.63 H HCO3/H2CO3 Ratio 19:1 ABG pH 7.38 ABG pCO2 54.1 H ABG pO2 80.7 ABG HCO3 31.1 H ABG O2 Saturation 95.5 ABG Base Excess 4.5 FiO2 6L Sodium 127.4 L Potassium 4.5 Chloride 88 L Carbon Dioxide 30 Anion Gap 9 BUN 25 H Creatinine 0.90 Est GFR ( Amer) > 60 Est GFR (Non-Af Amer) > 60 Glucose 166 H Calcium 9.8 Impressions: Chest X-Ray 07/08/17 13:50 IMPRESSION: Chronic changes no acute cardiopulmonary disease. Qualifiers PATEINT BEING DISCHARGED WITH ANY OF THE FOLLOWING DIAGNOSIS?: No Plan Discharge Plan: Patient is discharged home in stable condition. Follow-up with primary care in 2 weeks. Time Spent: Greater than 30 Minutes
== END 2017-07-10 11:25 | disposition home or self-care (01) | DRG 192 ==
LOC: ER 13:19 → EH 17:39 → 3N 07-09 02:38
PROVIDERS: ADMIT Internal Medicine; ATTEND Internal Medicine
DX: J44.1 Chronic obstructive pulmonary disease with (acute) exacerbation (principal); I48.2 Chronic atrial fibrillation; I10 Essential (primary) hypertension; E03.9 Hypothyroidism, unspecified; F41.9 Anxiety disorder, unspecified; Z60.2 Problems related to living alone; Z99.81 Dependence on supplemental oxygen; Z79.01 Long term (current) use of anticoagulants; Z79.51 Long term (current) use of inhaled steroids; Z79.52 Long term (current) use of systemic steroids; Z79.899 Other long term (current) drug therapy
CPT/HCPCS: 36415; 36600; 71010; 80048; 80053; 82550; 82803; 83605; 84484; 85025; 85027; 85610; 87040; 87077; 94640; 94660; 94667; 94799; 99285; J0456; J0696; J1650; J2920; J7060; J7512; J7620

== ENCOUNTER 2017-07-10 15:07 | Emergency (ER) | payer MEDICARE, OTHER ==
--- NOTE | 2017-07-10 17:00 | RADIOLOGY REPORT (SQ) ---
EXAM DESCRIPTION: CT HEAD WITHOUT COMPLETED DATE/TIME: 07/10/2017 4:44 pm REASON FOR STUDY: s/p fall, on coumadin COMPARISON: None. TECHNIQUE: Axial images acquired through the brain without intravenous contrast. Images reviewed wi th bone, brain and subdural windows. Images stored on PACS. All CT scanners at this facility use dose modulation, iterative reconstruction, and/or weight based d osing when appropriate to reduce radiation dose to as low as reasonably achievable (ALARA). [facility]: Dose Right [facility]: CareDose [facility]: Dose Right [facility]: Teradose 4D [facility]: AYLIEN RADIATION DOSE: mGy. LIMITATIONS: None. FINDINGS: VENTRICLES: Prominent. CEREBRUM: No masses. No hemorrhage. No midline shift. Areas of low density in the white matter mos t likely due to chronic micro-vascular ischemic change. No evidence for acute infarction. CEREBELLUM: No masses. No hemorrhage. No alteration of density. No evidence for acute infarction. EXTRAAXIAL SPACES: Age-related involutional change. No fluid collections. No masses. ORBITS AND GLOBE: No intra- or extraconal masses. Normal contour of globe without masses. CALVARIUM: No fracture. PARANASAL SINUSES: No fluid or mucosal thickening. SOFT TISSUES: No mass or hematoma. OTHER: No other significant finding. IMPRESSION: CHRONIC CHANGES OF ATROPHY AND MICROVASCULAR ISCHEMIA. NO ACUTE PROCESS. EVIDENCE OF ACUTE STROKE: NO. TECHNICAL DOCUMENTATION: JOB ID: [id number] Quality ID # [id number]: Final reports with documentation of one or more dose reduction techniques (e.g., Au tomated exposure control, adjustment of the mA and/or kV according to patient size, use of iterative reconstruction technique) 2010 [employer]- All Rights Reserved
--- NOTE | 2017-07-10 17:00 | RADIOLOGY REPORT (SQ) ---
EXAM DESCRIPTION: CHEST PA/LAT COMPLETED DATE/TIME: 07/10/2017 4:41 pm REASON FOR STUDY: s/p fall, on coumadin COMPARISON: 04/28/2015 EXAM PARAMETERS: NUMBER OF VIEWS: two views TECHNIQUE: Digital Frontal and Lateral radiographic views of the chest acquired. RADIATION DOSE: NA LIMITATIONS: none FINDINGS: LUNGS AND PLEURA: The lungs are hyperexpanded. There are interstitial changes. No acute infiltrate or pleural effusion is seen. MEDIASTINUM AND HILAR STRUCTURES: No masses or contour abnormalities. HEART AND VASCULAR STRUCTURES: Heart normal size. No evidence for failure. BONES: No acute findings. HARDWARE: None in the chest. OTHER: No other significant finding. IMPRESSION: Chronic lung changes with no acute cardiopulmonary disease. TECHNICAL DOCUMENTATION: JOB ID: [id number] [employer]- All Rights Reserved
--- NOTE | 2017-07-10 17:00 | RADIOLOGY REPORT (SQ) ---
EXAM DESCRIPTION: L SPINE WHOLE COMPLETED DATE/TIME: 07/10/2017 4:41 pm REASON FOR STUDY: s/p fall, on coumadin COMPARISON: None. NUMBER OF VIEWS: Five views including obliques. TECHNIQUE: AP, lateral, oblique, and sacral radiographic images acquired of the lumbar spine. LIMITATIONS: None. FINDINGS: MINERALIZATION: Bony structures are osteopenic SEGMENTATION: Normal. No transitional anatomy. ALIGNMENT: There is minimal anterolisthesis of L4 in relation to L5 VERTEBRAE: Maintained height. No fracture or worrisome bone lesion. DISCS: Degenerative changes are identified at the L5-S1 level with bony sclerosis and osteophytic lip ping. There is some minimal decrease in the L4-L5 disc space height. POSTERIOR ELEMENTS: Pedicles and facets are intact. No pars defect or posterior arch defects. Degen erative changes are identified and the facet articulations at multiple levels HARDWARE: None in the spine. PARASPINAL SOFT TISSUES: Normal. PELVIS: Intact as visualized. No fractures or worrisome bone lesions. SI joints intact. OTHER: No other significant finding. IMPRESSION: Degenerative changes without evidence for fracture. TECHNICAL DOCUMENTATION: JOB ID: [id number] [employer]- All Rights Reserved
--- NOTE | 2017-07-10 17:02 | RADIOLOGY REPORT (SQ) ---
EXAM DESCRIPTION: CT CERVICAL SPINE WITHOUT COMPLETED DATE/TIME: 07/10/2017 4:44 pm REASON FOR STUDY: s/p fall, on coumadin COMPARISON: None. TECHNIQUE: Axial images acquired through the cervical spine without intravenous contrast. Images re viewed with lung, soft tissue and bone windows. Reconstructed coronal and sagittal MPR images review ed. Images stored on PACS. All CT scanners at this facility use dose modulation, iterative reconstruction, and/or weight based d osing when appropriate to reduce radiation dose to as low as reasonably achievable (ALARA). [facility]: Dose Right [facility]: CareDose [facility]: Dose Right [facility]: Teradose 4D [facility]: [employer] RADIATION DOSE: mGy. LIMITATIONS: None. FINDINGS: ALIGNMENT: Anatomic. MINERALIZATION: Normal. VERTEBRAL BODIES: No fractures or dislocation. DISCS: Multilevel disc space narrowing with osteophytes. FACETS, LATERAL MASSES, POSTERIOR ELEMENTS: Facet arthropathy. No fractures. No dislocation. No ac cj findings. HARDWARE: None in the spine. VISUALIZED RIBS: No fractures. LUNG APICES AND SOFT TISSUES: No significant or acute findings. OTHER: No other significant finding. IMPRESSION: CHRONIC DEGENERATIVE CHANGES. NO ACUTE FINDINGS. TECHNICAL DOCUMENTATION: JOB ID: [id number] Quality ID # [id number]: Final reports with documentation of one or more dose reduction techniques (e.g., Au tomated exposure control, adjustment of the mA and/or kV according to patient size, use of iterative reconstruction technique) 2010 [employer]- All Rights Reserved
--- NOTE | 2017-07-10 17:04 | RADIOLOGY REPORT (SQ) ---
EXAM DESCRIPTION: HAND LEFT 3 VIEWS COMPLETED DATE/TIME: 07/10/2017 4:41 pm REASON FOR STUDY: FELL COMPARISON: None. EXAM PARAMETERS: NUMBER OF VIEWS: Three views. TECHNIQUE: AP, lateral and oblique radiographic images acquired of the left hand. LIMITATIONS: None. FINDINGS: MINERALIZATION: Bony structures are osteopenic BONES: No acute fracture or dislocation. No worrisome bone lesions. JOINTS: Osteoarthritic changes are identified at several of the interphalangeal joints. SOFT TISSUES: No soft tissue swelling. No foreign body. OTHER: Calcific densities are identified at the level of the triangular fibrocartilage consistent wit h chondrocalcinosis. IMPRESSION: No acute fracture or dislocation. Other findings as noted above TECHNICAL DOCUMENTATION: JOB ID: [id number] [employer]- All Rights Reserved
[2017-07-10 17:21] LABS: HEMATOCRIT 43.5 % (36.0-47.0); HEMOGLOBIN 14.4 g/dL (12.0-15.5); HGB HCT DIFFERENCE -0.3; MEAN CORPUSCULAR HGB CONC 33.2 g/dL (32.0-36.0); MEAN CORPUSCULAR VOLUME 93 fl (80-97); RED BLOOD COUNT 4.65 10^6/uL (3.72-5.28); WHITE BLOOD COUNT 24.8 10^3/uL (4.0-10.5)
[2017-07-10 17:23] LABS: PROTHROMBIN TIME 38.4 SEC (11.4-15.4)
[2017-07-10 17:48] LABS: BAND NEUTROPHILS % (MANUAL) 2 % (3-5); BASOPHILS % (MANUAL) 0 % (0-2); EOSINOPHILS % (MANUAL) 0 % (0-6); LYMPHOCYTES % (MANUAL) 1 % (13-45); TOTAL CELLS COUNTED 100; TOXIC GRANULATION SLIGHT
[2017-07-10 17:49] LABS: ANISOCYTOSIS SLIGHT; TOXIC VACUOLATION PRESENT
--- NOTE | 2017-07-10 18:14 | ER Document Report ---
ED Fall - General Chief Complaint: Fall Stated Complaint: FALL HAND INJURY Time Seen by Provider: 07/10/17 15:32 Notes: Patient was just in this hospital since Thursday and discharge this afternoon for treating of bronchitis. As she was being helped into her home, her chair hung up on the sidewalk and the patient fell backward out of the chair onto the concrete surface. She complains primarily of pain across the lower thoracic, and upper lumbar back region, but it only hurts when she lays on her back. When she lays on either side, she is not having that pain. In the fall, she also hit the back of her head and injured her left hand. She had no loss of consciousness and has no complaints of any neurologic deficits. Patient was discharged home on an antibiotic and prednisone. Patient has atrial fibrillation and is on Coumadin. Patient was in the hospital for respiratory difficulty and bronchitis. TRAVEL OUTSIDE OF THE [place] IN LAST 30 DAYS: No - Related data Allergies/Adverse Reactions: fexofenadine HCl [From Saray] Allergy (Verified 07/10/17 15:10) rash meperidine HCl [From Demerol] Allergy (Verified 07/10/17 15:10) heart problems nickel [Nickel] Allergy (Verified 07/10/17 15:10) RASH Past Medical History - Social History Smoking Status: Former Smoker Frequency of alcohol use: None Drug Abuse: None Family History: Other - Brother with atrial fibrillation Patient has suicidal ideation: No Patient has homicidal ideation: No - Past Medical History Cardiac Medical History: Reports: Hx Atrial Fibrillation, Hx Hypertension - on meds Pulmonary Medical History: Reports: Hx Asthma - inhalers, Hx COPD, Hx Pneumonia - hx of Endocrine Medical History: Reports: Hx Hyperthyroidism - History of radioactive iodine treatment, Hx Hypothyroidism - Occurred after radioactive iodine. Malignancy Medical History: Reports: Hx Skin Cancer Musculoskeltal Medical History: Reports Hx Arthritis Past Surgical History: Reports: Hx Appendectomy, Hx Orthopedic Surgery, Hx Tonsillectomy - Immunizations Hx Diphtheria, Pertussis, Tetanus Vaccination: Yes Hx Pneumococcal Vaccination: 07/03/08 Review of Systems - Review of Systems Notes: REVIEW OF SYSTEMS: CONSTITUTIONAL : Denies fever. EENT: Denies eye, ear, nose or mouth or throat pain or other symptoms. CARDIOVASCULAR: Denies chest pain. RESPIRATORY: Denies any new or different cough, chest congestion, or shortness of breath. GASTROINTESTINAL: Denies abdominal pain or nausea, vomiting, or diarrhea. GENITOURINARY: Denies difficulty or painful urinating, urinary frequency, blood in urine. MUSCULOSKELETAL: See HPI regarding back pain from this fall. Denies neck pain. Denies joint pain or swelling. SKIN: Denies rash or skin lesions. Large area of ecchymosis over the left dorsal web space of the left hand with some mild tenderness, no deformity. NEUROLOGICAL: Denies LOC or altered mental status. Denies headache except that she says it is tender in the occipital region. No hematoma felt. Denies sensory loss or motor deficits. ALL OTHER SYSTEMS REVIEWED AND NEGATIVE. Physical Exam - Vital signs Vitals: Temp Pulse Resp BP Pulse Ox 97.9 F 68 32 H 150/78 H 80 L 07/10/17 15:19 07/10/17 15:19 07/10/17 15:19 07/10/17 15:19 07/10/17 15:19 Interpretation: Tachypneic - But in no acute distress - Notes Notes: PHYSICAL EXAMINATION: GENERAL: Well-appearing, in no acute distress. HEAD: Atraumatic, normocephalic. Minor tenderness in the occipital region of the scalp, but no hematoma present. EYES: Pupils equal round and reactive to light, extraocular movements intact. ENT: oropharynx clear without exudates. Moist mucous membranes. NECK: Normal range of motion, supple. No posterior midline tenderness of the cervical spine. LUNGS: Breath sounds clear and equal bilaterally. No rib tenderness noted. HEART: Regular rate and rhythm without murmurs. ABDOMEN: Soft, nontender. No guarding or rebound. BACK: No tenderness throughout entire back. EXTREMITIES: Normal range of motion without pain. Left hand has very large area of ecchymosis over the left dorsal web space and around the base of the thumb itself. No deformity. Tender to touch. NEUROLOGICAL: Normal speech, can walk with some slight difficulty and assistance. Normal sensory, motor, and reflex exams. Awake, alert, and oriented x3. Cranial nerves normal. PSYCH: Normal mood, normal affect. SKIN: Warm, dry, no rashes. Course - Vital Signs Vital signs: Temp Pulse Resp BP Pulse Ox 97.9 F 68 19 150/78 H 90 L 07/10/17 15:19 07/10/17 15:19 07/10/17 17:00 07/10/17 15:19 07/10/17 17:00 - Laboratory Result Diagrams: 07/10/17 16:57 07/10/17 16:57 Laboratory results interpreted by me: 07/10/17 07/10/17 16:57 16:57 WBC 24.8 H RDW 15.0 H Plt Count 522 H Seg Neuts % (Manual) 96 H Band Neutrophils % 2 L Lymphocytes % (Manual) 1 L Monocytes % (Manual) 1 L Abs Neuts (Manual) 24.3 H Abs Lymphs (Manual) 0.2 L PT 38.4 H Discharge - Discharge Clinical Impression: Fall, Contusion of back, Contusion of left hand, Head injury Condition: Stable Disposition: HOME, SELF-CARE Additional Instructions: HEAD INJURY PRECAUTIONS: At this point, there is no evidence that your head injury is serious. Observation is necessary, however. Take only clear liquids for the first few hours, unless told otherwise by the doctor. If no pain medication was prescribed, you may take acetaminophen according to the directions on the bottle. Do not take any medication that may alter your level of alertness (unless you've discussed it with the doctor first) . Limit activity for the first 24 hours. Bed rest is best. During the first 24 hours, check to see approximately every two to three hours that the patient is easily arousable, responds normally, and can perform common tasks such as walking without difficulty. Contact your doctor or go to the hospital if any of the following things occur: Persistent vomiting, difficulty in arousing the patient, worsening or continued headache, or failure to improve as expected. Head injuries can cause symptoms that persist for a few days or even a few weeks. NECK INJURY (CERVICAL STRAIN): You have a neck strain. This is an injury to the muscles and ligaments in the neck. There is no evidence of a fracture of the neck bones. Also, no injury to the spinal cord or nerve roots was detected. Usually, stiffness and pain INCREASE for the first 24-48 hours after the injury. The pain will gradually resolve and the neck will become more mobile. Most patients are back at work or school within a few days. Typically, complete healing takes about two or three weeks. The usual initial treatment is rest and cold packs. A neck collar may be placed to keep the muscles of the neck at rest. Antiinflammatory and muscle relaxing medication are often used to reduce the spasm and irritation. You should call the doctor, or go to the hospital, if you develop numbness or weakness in any extremity, problems with your bladder or bowel, or pain radiating down the arms. CONTUSION: Your injury has resulted in a contusion -- a crushing of the deep tissues. No injury to important structures was detected during the physician's exam. Contusions vary in the amount of pain they cause, and in the length of time required for healing. Typically, the area will become bruised, and will remain painful to touch for two or three weeks. However, most patients are back to working and playing within a few days. After the initial period of rest and cold-packs, your symptoms (together with the doctor's recommendations) will determine how rapidly you can get back to full activity. Usually this means "do what feels okay, but don't do things that hurt." If re-examination was recommended, it's important to follow up as instructed. Call the doctor or return any time if pain increases, if swelling becomes severe, if you develop numbness or weakness in an injured extremity, or if any other alarming symptoms occur. BACK PAIN: Three out of every four people will have an episode of disabling back pain during their lifetime. Most commonly the pain is due to straining of the muscles and ligaments in the low back. Usual treatment includes: (1) Rest on a firm surface. Avoid lying on your stomach. (2) Ice pack the painful area. After a few days, gentle heat may be used intermittently to relax the area, or ice packs can be continued. (3) Medication may be needed -- muscle relaxers and antiinflammatory medicines are commonly used. (4) As the back improves, exercises are prescribed to strengthen the back and abdominal muscles. Your doctor will advise you on the proper care for your back at each stage in your recovery. You may be better in a few days -- or healing may take several weeks. If new symptoms of a "herniated disc" (radiation of pain, numbness, or tingling down the back of the leg or weakness in the leg) occur, you should be re-examined. Further testing may be necessary. Your white cell count is elevated, but I spoke with the hospitalist who was just taking care of you and it is felt to be secondary to your being on steroids. Likewise, the hospitalist feels that your sodium/salt level is low most likely secondary to too much fluid intake and it is recommended that you limit your intake of liquids to 1 1/2 Liters per day. USE OF TYLENOL (ACETAMINOPHEN): Acetaminophen may be taken for pain relief or fever control. It's much safer than aspirin, offering a wider range of "safe" dosages. It is safe during . Some brand names are Tylenol, Panadol, Datril, Anacin 3, Tempra, and Liquiprin. Acetaminophen can be repeated every four hours. The following are maximum recommended dosages: WEIGHT Dose Drops Elixir Chewable( 80mg) (LBS.) drprs=droppers tsp=teaspoon >89 pounds or adults 650 mg to 900 mg Acetaminophen can be repeated every four hours. Maximum dose not to exceed 4000 mg a day. These maximum recommended dosages are slightly higher than the dosages written on the product container, but these dosages are very safe and below the toxic dosage for acetaminophen. FOLLOW-UP CARE: If you have been referred to a physician for follow-up care, call the physician s office for an appointment as you were instructed or within the next two days. If you experience worsening or a significant change in your symptoms, notify the physician immediately or return to the Emergency Department at any time for re-evaluation. Referrals: JEFF TRUJILLO FNP [Primary Care Provider] - Follow up as needed
[2017-07-10 18:32] LABS: BLOOD UREA NITROGEN 29 mg/dL (7-20); CALCIUM 9.9 mg/dL (8.4-10.2); CREATININE RESULT 0.81 mg/dL (0.52-1.25); GLUCOSE 131 mg/dL (75-110)
[2017-07-10 18:33] LABS: ANION GAP 8 (5-19); CARBON DIOXIDE 32 mmol/L (22-30); CHLORIDE 87 mmol/L (98-107); SODIUM 127.4 mmol/L (137-145)
[2017-07-10 18:38] VITALS: BP 151/98
[2017-07-10 18:42] LABS: POTASSIUM 5.5 mmol/L (3.6-5.0)
== END 2017-07-10 18:41 | disposition home or self-care (01) ==
LOC: ER 15:07
DX: S20.229A Contusion of unspecified back wall of thorax, initial encounter (principal); S60.222A Contusion of left hand, initial encounter; S09.90XA Unspecified injury of head, initial encounter; W07.XXXA Fall from chair, initial encounter; Y93.89 Activity, other specified; Y92.480 Sidewalk as the place of occurrence of the external cause; I48.91 Unspecified atrial fibrillation; Z79.01 Long term (current) use of anticoagulants; I10 Essential (primary) hypertension; J44.9 Chronic obstructive pulmonary disease, unspecified; Z88.8 Allergy status to other drugs, medicaments and biological substances; Z88.5 Allergy status to narcotic agent; Z87.891 Personal history of nicotine dependence; Z85.828 Personal history of other malignant neoplasm of skin
CPT/HCPCS: 36415; 70450; 71020; 72110; 72125; 80048; 85025; 85610; 99284

== ENCOUNTER 2017-08-11 13:31 | Emergency (ER) | payer MEDICARE, OTHER ==
[2017-08-11 14:21] LABS: HEMATOCRIT 40.4 % (36.0-47.0); HEMOGLOBIN 13.4 g/dL (12.0-15.5); MEAN CORPUSCULAR HEMOGLOBIN 31.8 pg (27.0-33.4); MEAN CORPUSCULAR HGB CONC 33.1 g/dL (32.0-36.0); MEAN CORPUSCULAR VOLUME 96 fl (80-97); PLATELET COUNT 603 10^3/uL (150-450); RED BLOOD COUNT 4.21 10^6/uL (3.72-5.28); RED CELL DISTRIBUTION WIDTH 16.7 % (11.5-14.0); WHITE BLOOD COUNT 15.2 10^3/uL (4.0-10.5)
[2017-08-11 14:28] LABS: ALANINE AMINOTRANSFERASE 36 U/L (9-52); ALBUMIN 3.7 g/dL (3.5-5.0); ALKALINE PHOSPHATASE 87 U/L (38-126); ASPARTATE AMINO TRANSFERASE 45 U/L (14-36); BILIRUBIN,DIRECT 0.4 mg/dL (0.0-0.4); BILIRUBIN,TOTAL 0.8 mg/dL (0.2-1.3); BLOOD UREA NITROGEN 42 mg/dL (7-20); CALCIUM 10.3 mg/dL (8.4-10.2); CHLORIDE 89 mmol/L (98-107); CREATINE KINASE 21 U/L (30-135); GLUCOSE 138 mg/dL (75-110); POTASSIUM 4.7 mmol/L (3.6-5.0); SODIUM 138.1 mmol/L (137-145); TOTAL PROTEIN 6.3 g/dL (6.3-8.2)
[2017-08-11 14:34] LABS: ANION GAP 9 (5-19)
--- NOTE | 2017-08-11 14:38 | RADIOLOGY REPORT (SQ) ---
EXAM DESCRIPTION: CHEST SINGLE VIEW COMPLETED DATE/TIME: 08/11/2017 2:28 pm REASON FOR STUDY: shortness of breath COMPARISON: Chest films 10/20/2011, 04/28/2015, 07/10/2017 EXAM PARAMETERS: NUMBER OF VIEWS: One view. TECHNIQUE: Single frontal radiographic view of the chest acquired. RADIATION DOSE: NA LIMITATIONS: None. FINDINGS: LUNGS AND PLEURA: Lungs are hyperinflated from obstructive disease. Few Francisco lines at t he left lung base, question mild superimposed interstitial edema. No gross pleural effusions or pneumothorax. Fine MEDIASTINUM AND HILAR STRUCTURES: No masses. Contour normal. HEART AND VASCULAR STRUCTURES: No cardiomegaly. Tortuous uncoiled thoracic aorta BONES: Osteoporotic. No gross acute displaced fracture HARDWARE: None in the chest. OTHER: No other significant finding. IMPRESSION: Question fluid overload or interstitial edema superimposed on obstructive lung disease TECHNICAL DOCUMENTATION: JOB ID: [id number] [employer]- All Rights Reserved
[2017-08-11 14:39] LABS: ABSOLUTE LYMPHOCYTES# (MANUAL) 0.3 10^3/uL (0.5-4.7); ABSOLUTE MONOCYTES # (MANUAL) 0.3 10^3/uL (0.1-1.4); ABSOLUTE NEUTROPHILS# (MANUAL) 14.4 10^3/uL (1.7-8.2); BAND NEUTROPHILS % (MANUAL) 1 % (3-5); BASOPHILS % (MANUAL) 1 % (0-2); EOSINOPHILS % (MANUAL) 0 % (0-6); LYMPHOCYTES % (MANUAL) 2 % (13-45); MONOCYTES % (MANUAL) 2 % (3-13); SEGMENTED NEUTROPHILS % (MAN) 94 % (42-78); TOTAL CELLS COUNTED 100; TOXIC GRANULATION SLIGHT
[2017-08-11 14:40] LABS: ANISOCYTOSIS 1+; CREATINE KINASE MB 1.06 ng/mL (<4.55); OVALOCYTES 1+; PLATELET CLUMPS PRESENT; POIKILOCYTOSIS 1+; TROPONIN I 0.017 ng/mL
[2017-08-11 14:52] LABS: CARBON DIOXIDE 40 mmol/L (22-30)
[2017-08-11] MEDS ORDERED: CEFTRIAXONE 1 GM/D5W RTU 1 GM/50 ML RTUPB IV ONE (16:17)
[2017-08-11] MEDS ORDERED: CEFTRIAXONE SODIUM 1,000 MG in DEXTROSE 5%-WATER 50 ML IV ONE (17:00)
[2017-08-11 18:09] VITALS: BP 140/86
--- NOTE | 2017-08-11 18:15 | ER Document Report ---
ED General - General Chief Complaint: Respiratory Distress Stated Complaint: ALTERED MENTAL STATUS Time Seen by Provider: 08/11/17 14:01 Notes: Patient is a 81-year-old female with known dementia who lives with her daughter. She is on home O2 of 4 L because of history of COPD. She has been experiencing deterioration of her mental status over the past week. Daughter says she has been sleeping more and eating less and may be getting too much sedating medication. Today, daughter was attempting to take the patient to see a freight claim investigator and she has an oxygen creating device that is triggered by nasal respirations. Daughter says the patient seemed to panic and start shaking and could not get her breath and could not remember to breathe through her nose. She seemed to be more confused than usual, not recognizing the daughter. Patient has been in hospice at the suggestion of the patient's primary care provider. Patient was in the hospital here at [facility] in July. Daughter says that there was a misunderstanding because she did not realize what the primary intention of hospice is. Currently, the patient is on prednisone 2 mg and antibiotics for the past 5 days, both medications ordered by the hospice provider. TRAVEL OUTSIDE OF THE [place] IN LAST 30 DAYS: No - Related Data Allergies/Adverse Reactions: fexofenadine HCl [From Saray] Allergy (Verified 07/10/17 15:10) rash meperidine HCl [From Demerol] Allergy (Verified 07/10/17 15:10) heart problems nickel [Nickel] Allergy (Verified 07/10/17 15:10) RASH Past Medical History - Social History Smoking Status: Never Smoker Cigarette use (# per day): No Family History: Reviewed & Not Pertinent, Other - Brother with atrial fibrillation - Past Medical History Cardiac Medical History: Reports: Hx Atrial Fibrillation, Hx Hypercholesterolemia, Hx Hypertension - on meds Pulmonary Medical History: Reports: Hx Asthma - inhalers, Hx COPD, Hx Pneumonia - hx of Neurological Medical History: Reports: Other - Dementia Endocrine Medical History: Reports: Hx Hyperthyroidism - History of radioactive iodine treatment, Hx Hypothyroidism - Occurred after radioactive iodine. Malignancy Medical History: Reports: Hx Skin Cancer Musculoskeltal Medical History: Reports Hx Arthritis Past Surgical History: Reports: Hx Appendectomy, Hx Orthopedic Surgery, Hx Tonsillectomy - Immunizations Hx Diphtheria, Pertussis, Tetanus Vaccination: Yes Hx Pneumococcal Vaccination: 07/03/08 Review of Systems - Review of Systems -: Yes ROS unobtainable due to patient's medical condition Constitutional: denies: Fever Physical Exam - Vital signs Vitals: Resp 24 H 08/11/17 13:43 Interpretation: Normal, Hypoxic - O2 sat was down to 90% at the time of the patient's arrival. Notes: PHYSICAL EXAMINATION: GENERAL: Well-appearing, in no acute distress. Patient is awake, but does not understand questions and does not answer appropriately and does not follow commands appropriately. HEAD: Atraumatic, normocephalic. EYES: Pupils equal round and reactive to light, extraocular movements intact. ENT: oropharynx clear without exudates. Moist mucous membranes. NECK: Normal range of motion, supple. LUNGS: Breath sounds clear and equal bilaterally. HEART: Regular rate and rhythm without murmurs. Occasional ectopic beats. ABDOMEN: Soft, nontender. No guarding or rebound. No masses. BACK: No tenderness throughout entire back. EXTREMITIES: Normal range of motion without pain. No pain or swelling. Negative Homans. No edema. NEUROLOGICAL: Patient has rather severe dementia. Does not follow commands or answer questions appropriately or anything that suggests she is aware of what is going on around her. SKIN: Warm, dry, no rashes. Healing lesion on her left wrist from prior injury several weeks ago. Course - Re-evaluation Re-evalutation: 08/11/17 21:06 Patient remained stable throughout her stay in the department. Her oxygen level was maintained at a satisfactory level. Patient is a DO NOT RESUSCITATE patient and family does not wish to have her intubated or on a ventilator or other extreme measures. - Vital Signs Vital signs: Temp Pulse Resp BP Pulse Ox 20 140/86 H 92 08/11/17 18:01 08/11/17 18:01 08/11/17 18:01 - Laboratory Result Diagrams: 08/11/17 13:45 08/11/17 13:45 Laboratory results interpreted by me: 08/11/17 08/11/17 13:45 13:45 WBC 15.2 H RDW 16.7 H Plt Count 603 H Seg Neuts % (Manual) 94 H Band Neutrophils % 1 L Lymphocytes % (Manual) 2 L Monocytes % (Manual) 2 L Abs Neuts (Manual) 14.4 H Abs Lymphs (Manual) 0.3 L Chloride 89 L Carbon Dioxide 40 H* BUN 42 H Glucose 138 H Calcium 10.3 H AST 45 H Creatine Kinase 21 L 08/11/17 21:00 Elevated WBC noted. Patient is on prednisone. - Diagnostic Test Radiology reviewed: Image reviewed, Reports reviewed - Chest x-ray read by radiology as questionable fluid overload or interstitial edema superimposed on obstructive lung disease. - EKG Interpretation by [place] EKG shows normal: Sinus rhythm Rate: Normal Rhythm: NSR, APC's Voltage: Consistant with LVH Discharge - Discharge Clinical Impression: Altered mental status, Dementia, Hypoxia Condition: Stable Disposition: HOME, SELF-CARE Additional Instructions: Altered Mental Status An altered mental status is a change in the normal functioning of the brain. This alteration of function can range from minor decreased brain function with some forgetfulness and confusion to complete loss of consciousness and coma. There are many possible causes of an altered mental status and include brain injuries such as trauma or strokes, problems with oxygen supply to the brain, fever and infections of the brain and/or elsewhere in the body, metabolic abnormalities such as low or high blood sugar, overdoses or excessive medication ingestion, and mental and psychiatric illnesses. Sometimes the altered mental status resolves and a definite cause is not determined. If a cause for your altered mental status was found, it has likely been corrected. Your evaluation has not shown any condition that requires that you be admitted to the hospital. It is believed that you are safe to leave and return to your home. If you have a return of your symptoms, you should return for re-evaluation. Dementia The exam shows a decrease in mental ability called dementia. Signs of dementia include a gradual loss of memory and a decreased ability to reason and solve problems. Personality changes, hostility, lack of self-care, and loss of bladder or bowel control are later signs of dementia. In these later stages, patients may become confused, lost, fearful, or agitated, even in familiar places. Alzheimer's disease is the most common type of dementia. It has no known cause or specific treatment. Other causes include alcohol and drug abuse, medication effects (especially tranquilizers and sleeping pills), strokes, head injuries, and brain tumors. Sometimes severe depression in an elderly person is mistaken for dementia, and this can be treated if recognized. A complete medical evaluation and ongoing care with a doctor is important. Most people with dementia need help or supervision with daily living. Some may be able to live independently with occasional help; others require foster care or even snf placement. Alcohol, sedatives, and antihistamines may make the symptoms worse and should be avoided. Alzheimer's disease support groups are available in some communities and can be very valuable to the entire family. Prescription medication can ease the symptoms of Alzheimer's disease in some patients. Please arrange for medical follow-up. Return here if there is a sudden change in mental function, inability to move an arm or leg, inability to speak, fever, or any other significant change. Dyspnea, Nonspecific You were evaluated for shortness of breath, or dyspnea. Dyspnea has many causes, and some are more serious than others. Sometimes it's impossible to diagnose the cause of dyspnea with the tests that are available on an emergency basis. Based on our evaluation today, you do not need hospitalization now. We found no evidence of pneumonia, collapsed lung, blood clots in the lung, tumors , or heart failure. Causes of non-specific dyspnea can include asthma or bronchospasm, hyperventilation, emotional distress, heart disease, emphysema, fibrosis of the lung, and stiffness of the chest wall. In healthy individuals with a single episode, it's sometimes reasonable to do nothing but wait to see if the problem occurs again. Additional tests used to evaluate dyspnea can include cardiac stress testing, echocardiography, pulmonary function testing, CAT scan of the chest, bronchoscopy or pulmonary biopsy. Return if shortness of breath persists or worsens, or if you develop chest pain, fever, cough, confusion, or fainting. Her oxygen level was low but it has corrected itself now and she appears to be stable on oxygen, as she will be given at home. Leukocytosis Leukocytosis is an elevation or increase in the number of white blood cells. Nearly all leukocytosis is due to one type of white blood cell, the polymorphonuclear leukocyte (PMN). These conditions are more accurately referred to as neutrophilia. The most common and important cause of neutrophilia is infection, and most infections cause neutrophilia. The degree of elevation often indicates the severity of the infection. Tissue damage from other causes raises the white count for similar reasons. Gifford, infarction (cutting off the blood supply to a region of the body so that it dies), crush injuries, inflammatory diseases, poisonings, and severe diseases, like kidney failure and diabetic ketoacidosis, all cause neutrophilia. Counts almost as high occur in leukemoid (leukemia-like) reactions caused by infection and non-infectious inflammation. Drugs can also cause leukocytosis. Cortisone-like drugs prednisone, lithium , and NSAIDs are the most common offenders. Non-specific stresses also cause white blood cells to increase in the blood. Extensive testing of medical students reveals that neutrophilia accompanies every examination. Vigorous exercise and intense excitement also cause elevated white blood cell counts. Your elevated white cell count could be due to the prednisone that you are currently taking. Continue all your medications and your oxygen at home as before. FOLLOW-UP CARE: If you have been referred to a physician for follow-up care, call the physician s office for an appointment as you were instructed or within the next two days. If you experience worsening or a significant change in your symptoms, notify the physician immediately or return to the Emergency Department at any time for re-evaluation. Referrals: JEFF TRUJILLO FNP [Primary Care Provider] - Follow up as needed
--- NOTE | 2017-08-11 18:32 | EKG REPORT ---
SEVERITY:- ABNORMAL ECG - SINUS RHYTHM MULTIPLE ATRIAL PREMATURE COMPLEXES PROBABLE LEFT ATRIAL ABNORMALITY LEFT ANTERIOR FASCICULAR BLOCK LEFT VENTRICULAR HYPERTROPHY CONSIDER ANTERIOR INFARCT : Confirmed by: Lauri Brumfield MD 11-Aug-2017 18:31:54
== END 2017-08-11 18:50 | disposition home or self-care (01) ==
LOC: ER 13:31
DX: R41.82 Altered mental status, unspecified (principal); F03.90 Unspecified dementia, unspecified severity, without behavioral disturbance, psychotic disturbance, mood disturbance, and anxiety; R09.02 Hypoxemia; J44.9 Chronic obstructive pulmonary disease, unspecified; R06.00 Dyspnea, unspecified
CPT/HCPCS: 93005; 99285; 96365; 36415; 82553; 82550; 85025; 85730; 80053; 84484; 71045; 93010; 94660; J0696

== ENCOUNTER 2017-12-13 09:48 | Emergency (ER) | payer MEDICARE, OTHER ==
[2017-12-13 10:26] LABS: HEMATOCRIT 43.7 % (36.0-47.0); MEAN CORPUSCULAR HGB CONC 32.1 g/dL (32.0-36.0); MEAN CORPUSCULAR VOLUME 97 fl (80-97); PLATELET COUNT 439 10^3/uL (150-450); RED BLOOD COUNT 4.52 10^6/uL (3.72-5.28); RED CELL DISTRIBUTION WIDTH 15.1 % (11.5-14.0); WHITE BLOOD COUNT 16.2 10^3/uL (4.0-10.5)
--- NOTE | 2017-12-13 10:33 | ER Document Report ---
ED General - General Chief Complaint: Fall Stated Complaint: FALL HEAD INJURY Time Seen by Provider: 12/13/17 09:59 Mode of Arrival: Medic Information source: Patient, Law Enforcement Notes: 82-year-old female history of COPD presents with complaints of a mechanical fall. Patient notes she struck her head and her back. Patient denies being on the blood thinners. Patient is normally on 4 L nasal cannula at home, EMS found her satting 75% on nonrebreather. Patient herself denies any difficulty breathing denies any chest trauma TRAVEL OUTSIDE OF THE [place] IN LAST 30 DAYS: No - HPI Onset: Just prior to arrival Onset/Duration: Sudden Quality of pain: Achy Severity: Mild Pain Level: 1 Associated symptoms: Body/muscle aches - Admits to back pain, Other Exacerbated by: Movement Relieved by: Denies Similar symptoms previously: No Recently seen / treated by doctor: No - Related Data Allergies/Adverse Reactions: fexofenadine HCl [From Saray] Allergy (Verified 07/10/17 15:10) rash meperidine HCl [From Demerol] Allergy (Verified 07/10/17 15:10) heart problems nickel [Nickel] Allergy (Verified 07/10/17 15:10) RASH Past Medical History - Social History Smoking Status: Former Smoker Cigarette use (# per day): No Chew tobacco use (# tins/day): No Smoking Education Provided: No Family History: Reviewed & Not Pertinent, Other - Brother with atrial fibrillation - Past Medical History Cardiac Medical History: Reports: Hx Atrial Fibrillation, Hx Hypercholesterolemia, Hx Hypertension - on meds Denies: Hx Coronary Artery Disease, Hx Heart Attack Pulmonary Medical History: Reports: Hx Asthma - inhalers, Hx COPD, Hx Pneumonia - hx of Denies: Hx Bronchitis, Hx Tuberculosis Neurological Medical History: Denies: Hx Cerebrovascular Accident, Hx Seizures Endocrine Medical History: Reports: Hx Hyperthyroidism - History of radioactive iodine treatment, Hx Hypothyroidism - Occurred after radioactive iodine. Renal/ Medical History: Denies: Hx Peritoneal Dialysis Malignancy Medical History: Reports: Hx Skin Cancer GI Medical History: Denies: Hx Hepatitis, Hx Hiatal Hernia, Hx Ulcer Musculoskeltal Medical History: Reports Hx Arthritis Psychiatric Medical History: Denies: Hx Depression Infectious Medical History: Denies: Hx Hepatitis Past Surgical History: Reports: Hx Appendectomy, Hx Orthopedic Surgery, Hx Tonsillectomy. Denies: Hx Mastectomy, Hx Open Heart Surgery, Hx Pacemaker - Immunizations Hx Diphtheria, Pertussis, Tetanus Vaccination: Yes Hx Pneumococcal Vaccination: 07/03/08 Review of Systems - Review of Systems Notes: REVIEW OF SYSTEMS: CONSTITUTIONAL : Denies fever, chills, or sweats. Denies recent illness. EENT: Denies eye, ear, throat, or mouth pain or symptoms. Denies nasal or sinus congestion or discharge. Denies throat, tongue, or mouth swelling or difficulty swallowing. CARDIOVASCULAR: Denies chest pain. Denies palpitations or racing or irregular heart beat. Denies ankle edema. RESPIRATORY: Denies cough, cold, or chest congestion. Denies shortness of breath, difficulty breathing, or wheezing. GASTROINTESTINAL: Denies abdominal pain or distention. Denies nausea, vomiting , or diarrhea. Denies blood in vomitus, stools, or per rectum. Denies black, tarry stools. Denies constipation. GENITOURINARY: Denies difficulty urinating, painful urination, burning, frequency, blood in urine, or discharge. FEMALE GENITOURINARY: Denies vaginal bleeding, heavy or abnormal periods, irregular periods. Denies vaginal discharge or odor. MUSCULOSKELETAL: Admits to back pain SKIN: Denies rash, lesions or sores. HEMATOLOGIC : Denies easy bruising or bleeding. LYMPHATIC: Denies swollen, enlarged glands. NEUROLOGICAL: Denies confusion or altered mental status. Denies passing out or loss of consciousness. Denies dizziness or lightheadedness. Denies headache. Denies weakness or paralysis or loss of use of either side. Denies problems with gait or speech. Denies sensory loss, numbness, or tingling. Denies seizures. Admits head injury PSYCHIATRIC: Denies anxiety or stress. Denies depression, suicidal ideation, or homicidal ideation. ALL OTHER SYSTEMS REVIEWED AND NEGATIVE. PHYSICAL EXAMINATION: GENERAL: Well-appearing, well-nourished and in no acute distress. HEAD: Right occipital hematoma EYES: Pupils equal round and reactive to light, extraocular movements intact, conjunctiva are normal. ENT: Nares patent, oropharynx clear without exudates. Moist mucous membranes. NECK: Normal range of motion, supple without lymphadenopathy LUNGS: Decreased breath sounds all throughout noted to set 75% on nasal cannula placed on nonrebreather HEART: Regular rate and rhythm without murmurs ABDOMEN: Soft, nontender, nondistended abdomen. No guarding, no rebound. No masses appreciated. Female : deferred Musculoskeletal: Normal range of motion, no pitting or edema. No cyanosis. NEUROLOGICAL: Cranial nerves grossly intact. Normal speech, normal gait. Normal sensory, motor exams PSYCH: Normal mood, normal affect. SKIN: Warm, Dry, normal turgor, no rashes or lesions noted. Dictation was performed using [employer] voice recognition software Physical Exam - Vital signs Vitals: Temp Pulse Resp BP Pulse Ox 97.8 F 93 28 H 167/95 H 93 12/13/17 09:50 12/13/17 09:50 12/13/17 09:50 12/13/17 09:50 12/13/17 09:50 Course - Re-evaluation Re-evalutation: 12/13/17 11:00 Pulse oximeter was taken off finger and placed on ear she is satting 88-91% which is her baseline - Vital Signs Vital signs: Temp Pulse Resp BP Pulse Ox 97.8 F 93 18 129/91 H 98 12/13/17 09:50 12/13/17 09:50 12/13/17 10:01 12/13/17 10:01 12/13/17 10:01 - Laboratory Result Diagrams: 12/13/17 09:55 12/13/17 09:55 Laboratory results interpreted by me: 12/13/17 12/13/17 12/13/17 09:55 09:55 11:52 WBC 16.2 H RDW 15.1 H Seg Neuts % (Manual) 87 H Lymphocytes % (Manual) 7 L Abs Neuts (Manual) 14.1 H Chloride 93 L Carbon Dioxide 39 H AST 44 H Urine Blood SMALL H Urine Ascorbic Acid 20 H Discharge - Discharge Clinical Impression: Fall, Scalp hematoma Condition: Stable Disposition: HOME, SELF-CARE Instructions: Head Injury Precautions ([facility]) Additional Instructions: Follow up with your physician tomorrow for further care or return to the ED IMMEDIATELY if symptoms worsen or new concerns occur. If you cannot afford to follow up with your primary care physician a list of low cost clinics have been provided at the end of your discharge papers as well. Referrals: JEFF TRUJILLO FNP [Primary Care Provider] - Follow up as needed
[2017-12-13 10:36] LABS: ALANINE AMINOTRANSFERASE 40 U/L (9-52); ALKALINE PHOSPHATASE 77 U/L (38-126); ASPARTATE AMINO TRANSFERASE 44 U/L (14-36); BILIRUBIN,DIRECT 0.2 mg/dL (0.0-0.4); BILIRUBIN,TOTAL 0.8 mg/dL (0.2-1.3); BLOOD UREA NITROGEN 15 mg/dL (7-20); CHLORIDE 93 mmol/L (98-107); CREATINE KINASE 43 U/L (30-135); GLUCOSE 101 mg/dL (75-110); POTASSIUM 4.7 mmol/L (3.6-5.0); SODIUM 139.2 mmol/L (137-145); TOTAL PROTEIN 6.6 g/dL (6.3-8.2)
[2017-12-13 10:43] LABS: ANION GAP 7 (5-19); CARBON DIOXIDE 39 mmol/L (22-30)
[2017-12-13 10:47] LABS: CREATINE KINASE MB 1.93 ng/mL (<4.55)
[2017-12-13 10:48] LABS: TROPONIN I < 0.012 ng/mL
[2017-12-13] MEDS ORDERED: IPRATROPIUM/ALBUTEROL 0.5-2.5 MG/3 ML AMPUL NEB ONE (10:59)
[2017-12-13 11:01] LABS: ABSOLUTE LYMPHOCYTES# (MANUAL) 1.1 10^3/uL (0.5-4.7); ABSOLUTE MONOCYTES # (MANUAL) 0.6 10^3/uL (0.1-1.4); ABSOLUTE NEUTROPHILS# (MANUAL) 14.1 10^3/uL (1.7-8.2); BASOPHILS % (MANUAL) 1 % (0-2); EOSINOPHILS % (MANUAL) 1 % (0-6); LYMPHOCYTES % (MANUAL) 7 % (13-45); MONOCYTES % (MANUAL) 4 % (3-13); SEGMENTED NEUTROPHILS % (MAN) 87 % (42-78); TOTAL CELLS COUNTED 100
[2017-12-13 11:03] LABS: ANISOCYTOSIS SLIGHT; OVALOCYTES SLIGHT; PLATELET COMMENT ADEQUATE; POIKILOCYTOSIS SLIGHT
--- NOTE | 2017-12-13 11:40 | RADIOLOGY REPORT (SQ) ---
EXAM DESCRIPTION: CHEST SINGLE VIEW COMPLETED DATE/TIME: 12/13/2017 11:28 am REASON FOR STUDY: fall, hypoxemia copd COMPARISON: 08/11/2017 EXAM PARAMETERS: NUMBER OF VIEWS: One view. TECHNIQUE: Single frontal radiographic view of the chest acquired. RADIATION DOSE: NA LIMITATIONS: None. FINDINGS: LUNGS AND PLEURA: Improved aeration of the left lung base. No new opacities, masses or pn eumothorax. No pleural effusion. MEDIASTINUM AND HILAR STRUCTURES: No masses. Contour normal. HEART AND VASCULAR STRUCTURES: Heart stable in size. Normal vasculature. BONES: No acute findings. HARDWARE: None in the chest. OTHER: No other significant finding. IMPRESSION: NO ACUTE RADIOGRAPHIC FINDING IN THE CHEST. IMPROVED APPEARANCE COMPARED TO PRIOR STUDY . TECHNICAL DOCUMENTATION: JOB ID: [id number] [employer]- All Rights Reserved Reading location - IP/workstation name: [email or web address]
--- NOTE | 2017-12-13 13:08 | RADIOLOGY REPORT (SQ) ---
EXAM DESCRIPTION: CT HEAD WITHOUT COMPLETED DATE/TIME: 12/13/2017 12:59 pm REASON FOR STUDY: fall, head injury, hypoxic COMPARISON: 08/10/2016 TECHNIQUE: Axial images acquired through the brain without intravenous contrast. Images reviewed wi th bone, brain and subdural windows. Images stored on PACS. All CT scanners at this facility use dose modulation, iterative reconstruction, and/or weight based d osing when appropriate to reduce radiation dose to as low as reasonably achievable (ALARA). [facility]: Dose Right [facility]: CareDose [facility]: Dose Right [facility]: Teradose 4D [facility]: [employer] RADIATION DOSE: mGy. LIMITATIONS: None. FINDINGS: VENTRICLES: Prominent. CEREBRUM: No masses. No hemorrhage. No midline shift. Areas of low density in the white matter mos t likely due to chronic micro-vascular ischemic change. No evidence for acute infarction. CEREBELLUM: No masses. No hemorrhage. No alteration of density. No evidence for acute infarction. EXTRAAXIAL SPACES: Age-related involutional change. No fluid collections. No masses. ORBITS AND GLOBE: No intra- or extraconal masses. Normal contour of globe without masses. CALVARIUM: No fracture. PARANASAL SINUSES: No fluid or mucosal thickening. SOFT TISSUES: Right posterior scalp hematoma. OTHER: No other significant finding. IMPRESSION: SCALP HEMATOMA. NO FRACTURE OR ACUTE INTRACRANIAL PROCESS. EVIDENCE OF ACUTE STROKE: NO. TECHNICAL DOCUMENTATION: JOB ID: [id number] Quality ID # [id number]: Final reports with documentation of one or more dose reduction techniques (e.g., Au tomated exposure control, adjustment of the mA and/or kV according to patient size, use of iterative reconstruction technique) 2010 [employer]- All Rights Reserved Reading location - IP/workstation name: [email or web address]
--- NOTE | 2017-12-13 13:10 | RADIOLOGY REPORT (SQ) ---
EXAM DESCRIPTION: CT CERVICAL SPINE WITHOUT COMPLETED DATE/TIME: 12/13/2017 12:59 pm REASON FOR STUDY: fall, head injury, hypoxic COMPARISON: 07/10/2017. TECHNIQUE: Axial images acquired through the cervical spine without intravenous contrast. Images re viewed with lung, soft tissue and bone windows. Reconstructed coronal and sagittal MPR images review ed. Images stored on PACS. All CT scanners at this facility use dose modulation, iterative reconstruction, and/or weight based d osing when appropriate to reduce radiation dose to as low as reasonably achievable (ALARA). [facility]: Dose Right [facility]: CareDose [facility]: Dose Right [facility]: Teradose 4D [facility]: [employer] RADIATION DOSE: mGy. LIMITATIONS: None. FINDINGS: ALIGNMENT: Stable alignment and curvature. MINERALIZATION: Osteopenia. VERTEBRAL BODIES: No fractures or dislocation. DISCS: Multilevel disc space narrowing with osteophytes. FACETS, LATERAL MASSES, POSTERIOR ELEMENTS: Facet arthropathy. No fractures. No dislocation. No ac cj findings. HARDWARE: None in the spine. VISUALIZED RIBS: No fractures. LUNG APICES AND SOFT TISSUES: No significant or acute findings. OTHER: No other significant finding. IMPRESSION: NO ACUTE OSSEOUS ABNORMALITY. NO SIGNIFICANT CHANGE FROM PRIOR STUDY. TECHNICAL DOCUMENTATION: JOB ID: [id number] Quality ID # [id number]: Final reports with documentation of one or more dose reduction techniques (e.g., Au tomated exposure control, adjustment of the mA and/or kV according to patient size, use of iterative reconstruction technique) 2010 [employer]- All Rights Reserved Reading location - IP/workstation name: [email or web address]
[2017-12-13 13:33] LABS: APPEARANCE,URINE SLIGHTLY-CLOUDY; BILIRUBIN,URINE NEGATIVE (NEGATIVE); COLOR,URINE YELLOW; GLUCOSE, URINE NEGATIVE (NEGATIVE); KETONES,URINE NEGATIVE (NEGATIVE); LEUKOCYTE ESTERASE,URINE NEGATIVE (NEGATIVE); NITRITE,URINE NEGATIVE (NEGATIVE); PROTEIN,URINE NEGATIVE (NEGATIVE); URINE SPECIFIC GRAVITY 1.012; UROBILINOGEN,URINE NEGATIVE mg/dL (<2.0)
--- NOTE | 2017-12-13 13:42 | RADIOLOGY REPORT (SQ) ---
EXAM DESCRIPTION: CT ABD/PELVIS WITH IV ONLY; CT CHEST WITH COMPLETED DATE/TIME: 12/13/2017 12:59 pm REASON FOR STUDY: fall, head injury, hypoxic CONTRAST TYPE AND DOSE: Isovue 370. 65.4 mL. RENAL FUNCTION: Not specified. COMPARISON: None. TECHNIQUE: CT scan of the chest performed using helical scanning technique with dynamic intravenous contrast injection. Images reviewed with lung, soft tissue and bone windows. Reconstructed coronal a nd sagittal MPR images reviewed. All images stored on PACS. All CT scanners at this facility use dose modulation, iterative reconstruction, and/or weight based d osing when appropriate to reduce radiation dose to as low as reasonably achievable (ALARA). [facility]: Dose Right [facility]: CareDose [facility]: Dose Right [facility]: Teradose 4D [facility]: [employer] RADIATION DOSE: 658.86. LIMITATIONS: None. FINDINGS: AXILLAE: No adenopathy. CHEST WALL: No masses. No subcutaneous air. LUNGS: Changes compatible with centrilobular emphysema. There is chronic subpleural interstitial terrie nge prominent in lung bases. PLEURA: Bilateral pleural thickening. . THYROID: No masses or significant asymmetry. HILAR AND MEDIASTINAL STRUCTURES: Small pretracheal, precarinal, sub- carinal and hilar nodes. AORTA AND GREAT VESSELS: Dilatation of the ascending thoracic aorta measuring 5.1 cm in AP diameter b y 4.8 cm in transverse diameter. Atherosclerotic tortuosity of the brachiocephalic vessels. Normal descending thoracic aorta measuring 2.6 cm. No dissection. PULMONARY ARTERIES: No identified pulmonary emboli. Study not optimized for the pulmonary arteries. HEART: Atherosclerotic coronary artery calcification. Small pericardial effusion. Mitral valvular c alcification. HARDWARE AND LIFELINES: None. BONES: Dorsal spondylosis. Lumbar spondylosis. OTHER: No other significant finding. IMPRESSION: CENTRILOBULAR EMPHYSEMA WITH CHRONIC SUBPLEURAL INTERSTITIAL CHANGES IN LUNG BASES. ATH EROSCLEROTIC DILATATION OF ASCENDING THORACIC AORTA. NORMAL CT OF THE CHEST WITH IV CONTRAST. COMPARISON: None. RADIATION DOSE: 658.86. MGy. TECHNIQUE: CT scan of the abdomen and pelvis performed with intravenous and oral contrast using mavis jeanie scanning technique with dynamic intravenous contrast injection. Images reviewed with lung, soft tissue and bone windows. Reconstructed coronal and sagittal MPR images reviewed. Delayed images for evaluation of the urinary system also acquired and evaluated. All images stored on PACS. All CT scanners at this facility use dose modulation, iterative reconstruction, and/or weight based d osing when appropriate to reduce radiation dose to as low as reasonably achievable (ALARA). [facility]: Dose Right [facility]: [employer] [facility]: Dose Right [facility]: Teradose 4D [facility]: [employer] FINDINGS: LIVER: No abnormality. SPLEEN: No abnormality. . PANCREAS: No abnormality. GALLBLADDER: No abnormality seen. . ADRENAL GLANDS: Adrenal hyperplasia. RIGHT KIDNEY AND URETER: Compensatory enlargement of the right kidney. Chronic scarring with deformi ty of collecting system of the upper pole the right kidney. LEFT KIDNEY AND URETER: Atrophic left kidney cortical cyst lower pole left kidney. Cortical scarring of the right kidney. No hydronephrosis. AORTA AND VESSELS: Diffuse atherosclerotic change of the abdominal aorta and iliac vessels. Atherosc lerotic change of the origin of the SMA. Patency these celiac and inferior mesenteric arteries. Ath erosclerotic change at origin of right renal artery. Hypoplastic left renal artery. RETROPERITONEUM: No retroperitoneal adenopathy, hemorrhage or masses. LARGE AND SMALL BOWEL: Colonic diverticulosis. APPENDIX: Status post appendectomy. ABDOMINAL WALL: No hernia or masses. PERITONEAL CAVITY: No free air. No free fluid. No peritoneal implants or masses. PELVIS: Urinary bladder: No abnormality seen. Uterus: No abnormality seen. Large and small bowel: Diverticulosis. BONES: Lumbar spondylosis. Marked degenerative disc disease at L5-S1. Marked facet arthropathy and hypertrophy OTHER: No other significant finding. IMPRESSION: EVIDENCE OF CHRONIC POST INFLAMMATORY CHANGE OF BOTH KIDNEYS WITH ATROPHIC LEFT KIDNEY. NORMAL CT OF THE ABDOMEN AND PELVIS WITH ORAL AND INTRAVENOUS CONTRAST. TECHNICAL DOCUMENTATION: JOB ID: [id number] Quality ID # [id number]: Final reports with documentation of one or more dose reduction techniques (e.g., Au tomated exposure control, adjustment of the mA and/or kV according to patient size, use of iterative reconstruction technique) 2010 [employer]- All Rights Reserved Reading location - IP/workstation name: [email or web address]
[2017-12-13 14:44] VITALS: BP 132/89
--- NOTE | 2017-12-13 16:43 | EKG REPORT ---
SEVERITY:- ABNORMAL ECG - SINUS RHYTHM MULTIPLE ATRIAL PREMATURE COMPLEXES LEFT ANTERIOR FASCICULAR BLOCK PROBABLE LEFT VENTRICULAR HYPERTROPHY CONSIDER ANTERIOR INFARCT : Confirmed by: Lauri Brumfield MD 13-Dec-2017 16:42:27
== END 2017-12-13 14:30 | disposition home or self-care (01) ==
LOC: ER 09:48
DX: S00.03XA Contusion of scalp, initial encounter (principal); J44.9 Chronic obstructive pulmonary disease, unspecified; M79.1 Myalgia; M54.9 Dorsalgia, unspecified; W18.30XA Fall on same level, unspecified, initial encounter; I48.91 Unspecified atrial fibrillation; E78.00 Pure hypercholesterolemia, unspecified; I10 Essential (primary) hypertension; Z99.81 Dependence on supplemental oxygen; Z87.891 Personal history of nicotine dependence
CPT/HCPCS: 93005; 94640; 99284; 36415; 82553; 82550; 85025; 80053; 81001; 84484; 71045; 70450; 71260; 72125; 74177; 93010; A9270; J7620